=== PATIENT | female | born 1950 | race African-American/Black ===

== ENCOUNTER 2019-07-29 00:29 | Inpatient (IN) ==
[2019-07-29] MEDS ORDERED: ZOFRAN IV ONE (01:00)
[2019-07-29] MEDS ORDERED: NS 1,000 ML IV ONE (01:00)
[2019-07-29 01:08] LABS: BE -22.1 mmoll (-3.0-3.0); BLOOD TYPE ARTERIAL; HCO3-(ACT) 7.6 mmoll (20.0-26.0); METHB 0.2 % (0.0-1.5); O2(CT) 20.5 mL/dL (15.0-23.0); O2HB 95.6 % (95.0-99.0); PO2(98.6) 105 mmHg (60-100); SAMPLE BLOOD; SAO2 95.8 % (95.0-100.0); THB 15.2 g/dL (11.5-17.4)
[2019-07-29 01:12] LABS: PCO2(98.6) 18 mmHg (35-45)
[2019-07-29 01:12] LABS: HEMATOCRIT 43.7 % (37.0-47.0); HEMOGLOBIN 13.9 g/dL (12.0-16.0); MCH 29.4 PG (27-31); MCHC 31.8 g/dL (33-37); MCV 92.6 FL (81-99); MPV 10.5 FL (7.4-10.4); RBC 4.72 XMIL (4.2-5.4); RDW 13.9 % (11.5-14.5); WBC 13.24 X1000 (4.8-10.8)
[2019-07-29 01:13] LABS: ALLEN TEST NO; MODALITY ROOM AIR
[2019-07-29] MEDS ORDERED: DILAUDID IV ONE (01:30)
[2019-07-29 01:33] LABS: URINE SOURCE CATH
[2019-07-29] MEDS ORDERED: NS 100 ML ONE (01:33)
[2019-07-29 01:43] LABS: ESTIMATED GFR 28
[2019-07-29] MEDS ORDERED: HUMULIN R IV ONE ×3 (01:45→05:08)
[2019-07-29] MEDS: HUMULIN R 100 UNIT in NS 99 ML IV ONE ×2 (01:45→03:01)
[2019-07-29 01:46] LABS: AGAP 29; ALBUMIN 4.8 g/dL (3.5-5.0); ALKALINE PHOSPHATASE 129 U/L (32-104); BUN 26 mg/dL (8-22); CALCIUM 10.1 mg/dL (8.8-10.2); CHLORIDE 102 mmol/L (98-107); CK PROFILE 29 U/L (24-173); COSMO 304; CREATININE 1.8 mg/dL (0.5-0.9); GOT 12 U/L (10-30); GPT 7 U/L (10-36); MAGNESIUM 2.1 mg/dL (1.5-2.7); PHOSPHORUS 7.4 mg/dL (2.7-4.5); POTASSIUM 5.2 mmol/L (3.5-5.1); SODIUM 138 mmol/L (136-145); TCO2 6 mmol/L (25-35); TOTAL PROTEIN 8.7 g/dL (6.3-8.3)
[2019-07-29 01:49] LABS: GLUCOSE 522 mg/dL (70-104)
[2019-07-29 01:53] LABS: UR AMPHETAMINES QUAL NONE DETECTED (NONE DETECT); UR BARBITUATES QUAL NONE DETECTED (NONE DETECT); UR BENZODIAZEPIN QUAL NONE DETECTED (NONE DETECT); UR CANNABINOIDS QUAL NONE DETECTED (NONE DETECT); UR COCAINE QUAL NONE DETECTED (NONE DETECT); UR METHADONE QUAL NONE DETECTED (NONE DETECT); UR METHAMPHETAMINE QUAL NONE DETECTED (NONE DETECT); UR OPIATES QUAL NONE DETECTED (NONE DETECT); UR OXYCODONE QUAL NONE DETECTED (NONE DETECT); UR PCP QUAL NONE DETECTED (NONE DETECT); UR PROPOXYPHENE QUAL NONE DETECTED (NONE DETECT); UR TCA QUAL NONE DETECTED (NONE DETECT)
[2019-07-29 02:01] LABS: ACETONE SERUM SMALL (NEGATIVE)
[2019-07-29 02:03] LABS: BILIRUBIN URINE NEGATIVE (NEGATIVE); BLOOD URINE NEGATIVE (NEGATIVE); CLARITY CLEAR (CLEAR); COLOR YELLOW; KETONE URINE 3+(Large) mg/dL (NEGATIVE); LEUKOCYTES URINE NEGATIVE (NEGATIVE); NITRITE URINE NEGATIVE (NEGATIVE); PROTEIN URINE 1+(30 mg/dL) mg/dL (NEGATIVE); UROBILINOGEN URINE NORMAL
[2019-07-29 02:06] LABS: URINE BACTERIA 2+ /HFP; URINE EPITHELIAL CELLS <10 /HPF (<10); URINE RBC <10 /HPF (<10); URINE WBC <10 /HPF (<10)
--- NOTE | 2019-07-29 02:25 | EKG Report ---
Test Performed on : 07/29/2019 00:33:51 AM Test Reason : palpitation Blood Pressure : / mmHG Vent. Rate : 110 BPM Atrial Rate : 110 BPM P-R Int : 112 ms QRS Dur : 078 ms QT Int : 380 ms P-R-T Axes : 053 028 038 degrees QTc Int : 514 ms Sinus tachycardia. Nonspecific ST and T wave abnormality Abnormal ECG No previous ECGs available Unconfirmed Result
--- NOTE | 2019-07-29 02:26 | PROVIDER DOCUMENTATION ---
This chart was entered by Vicki Sorensen Scribe, acting as scribe for Uriel Goncalves MD. [facility]-General Adult - General Chief Complaint: Palpitations Stated Complaint: N/V, high blood sugar Time Seen by Provider: 07/29/19 00:41 Source: patient Allergies/Adverse Reactions: Patient Allergies Allergy/AdvReac Type Severity Reaction Status Date / Time aspirin AdvReac NAUSEA/VOMI Verified 07/29/19 00:33 TING Penicillins AdvReac Unknown Verified 07/29/19 00:33 Home Medications: Home Medication List Medication Instructions Recorded Confirmed Last Taken Type Atorvastatin Calcium [Lipitor] 40 mg PO QHS 07/29/19 07/29/19 Unknown History Clopidogrel Bisulfate [Clopidogrel] 1 tab PO DAILY 07/29/19 07/29/19 Unknown History Cyproheptadine HCl 4 mg PO QHS 07/29/19 07/29/19 Unknown History Docusate Sodium [Colace] 2 tab PO BID 07/29/19 07/29/19 Unknown History Lisinopril 2.5 mg PO DAILY 07/29/19 07/29/19 Unknown History Methocarbamol 500 mg PO Q6-8H PRN 07/29/19 07/29/19 Unknown History Metoprolol Babin/Hydrochlorothiaz 1 tab PO DAILY 07/29/19 07/29/19 Unknown History [Metoprolol ER-Hctz 25-12.5 mg] Pantoprazole Sodium 20 mg PO DAILY 07/29/19 07/29/19 Unknown History Paroxetine [Paxil] 20 mg PO DAILY 07/29/19 07/29/19 Unknown History Tamoxifen Citrate 20 mg PO DAILY 07/29/19 07/29/19 Unknown History - History of Present Illness -Gen Adult Nature of Presenting Problems: pt is a69 yobf c/o n/vx3 days, palpitations and bilat leg, back and abd pain. pt sts ran out of he rx last saturday. pt is a [facility] pt, has rt breast cancer. pt had rt mastectomy. pt has hx of DM and HTN. pt has port L chest. pt arrived via [facility], high fsbs of 418 and received zofran IM enroute. pt was seen at [facility] saturday for fall. Location of Pain/Injury: reports: abdomen, back, lower extremity Quality of Pain: reports: aching Severity: reports: mild Onset/Duration: reports: 3 days ago Timing: reports: still present Context/Activities at Onset: reports: none Modifying Factors: improves with: nothing Associated Symptoms: reports: back/neck pain, nausea, vomiting Similar Symptoms Previously?: Yes Recently seen or treated by another doctor?: Yes (er on saturday for fall ) - Diabetes Related Context Context: reports: high blood sugar Review of Systems - Adult - REVIEW OF SYSTEMS - ADULT Constitutional: reports: no symptoms reported. denies: chills, fever, fatique Eyes: reports: no symptoms reported Ears, Nose, Mouth & Throat: reports: no symptoms reported Cardiovascular: reports: see HPI, palpitations. denies: heart murmur, irregular heart rate, orthopnea Respiratory: reports: no symptoms reported Gastrointestinal: reports: see HPI, abdominal pain, nausea, vomiting. denies: diarrhea, difficulty swallowing, rectal bleeding Genitourinary: reports: no symptoms reported Musculoskeletal: reports: see HPI, back pain, muscle aches (bilat LE pain). denies: muscle weakness, neck pain Integumentary: reports: no symptoms reported Neurological: reports: no symptoms reported Psychiatric: reports: no symptoms reported Endocrine: reports: no symptoms reported Hematologic/Lymphatic: reports: no symptoms reported Allergic/Immunologic: reports: no symptoms reported All Other Systems: Reviewed and Negative Past History - Adult - PAST MEDICAL HISTORY-ADULT Review of Records: reports: Nursing Assessment Review, Medications Reviewed, Social history reviewed & non-contributory. Major Childhood Illnesses: reports: denies history Cardiovascular: reports: HTN Respiratory: reports: denies history Gastrointestinal: reports: denies history Obstetrical/Gynecological: reports: other (breast ca- resolved) Genitourinary: reports: denies history Musculoskeletal: reports: arthritis Neurological: reports: denies history Psychiatric: reports: denies history Endocrine/Immune: reports: Diabetes Other Conditions: reports: denies history - PRIOR SURGERIES/PROCEDURES Surgical/Procedure History: reports: breast (rt masectetomy) - IMMUNIZATION STATUS Childhood Immunizations: See Nurse Assessment Flu Vaccine: See Nurse Assessment - FAMILY HISTORY Family History: reviewed, not pertinent - SOCIAL HISTORY Smoking: cigarettes, less than 1 pack/day Provider spent 3-5 mins advising pt. on dangers of tobacco.: Discussed manners to quit use, and f/u contacts for add'l counseling. Substance Use: none/never Physical Exam-General - PHYSICAL EXAM-ADULT Initial Vital Signs Reviewed: Yes - CONSTITUTIONAL General Appearance: alert, mild distress, cachetic, thin. negative: appears well, lethargic, combative - EYES Eyes: PERRL/EOMI, pink conjunctivae - HEAD, EARS, NOSE, MOUTH & THROAT HENMT: normocephalic/atraumatic, moist mucous membranes - NECK Neck: non-tender, full range of motion, supple, normal inspection - RESPIRATORY Respiratory: chest non-tender, lungs clear, normal breath sounds - CARDIOVASCULAR Cardiovascular: normal peripheral pulses, regular rate, rhythm, no edema, no gallop, no JVD, no murmur. negative: bradycardia, tachycardia, extra beats, friction rub - GASTROINTESTINAL (ABDOMEN) Abdominal Exam: normal bowel sounds, soft, no organomegaly, no pulsatile mass, tenderness (general abd to palp). negative: non tender, distended, guarding, rigid - LYMPHATIC Lymphatic: no adenopathy - MUSCULOSKELETAL Back Exam: normal inspection, no CVA tenderness, no vertebral tenderness Extremity: normal range of motion, non-tender, normal inspection, no pedal edema , no calf tenderness, normal capillary refill Peripheral Pulses: radial (R): 2+, radial (L): 2+ - SKIN Integumentary: normal color, normal turgor, warm/dry - NEUROLOGIC Neurologic: grossly normal, no motor/sensory deficits - PSYCHIATRIC Psych/Mental Status: normal mood/affect, normal thought content, normal thought process, oriented x 3 Progress - PLAN OF CARE/RESULTS Progress/Plan/Lab Results: Vital Signs - 8 hr 07/29/19 00:29 Temperature 97.9 F Pulse Rate 112 H Respiratory Rate 24 Blood Pressure 128/104 O2 Sat by Pulse Oximetry 99 Orders Category Date Time Status Cardiac Monitoring DIRECTED Care 07/29/19 00:34 Active FSBS/Accucheck Result Q1H Care 07/29/19 00:39 Active Finger Stick Blood Sugar (ED) DIRECTED Care 07/29/19 00:34 Active Vital Signs Order Q1H Care 07/29/19 00:39 Active ABG [RESP] Routine Lab 07/29/19 00:39 Ordered ACETONE SERUM [CHEM] Stat Lab 07/29/19 00:39 Ordered CBC WITH NO DIFF [HEME] Stat Lab 07/29/19 00:39 Ordered CK PROFILE [SP CHEM] Stat Lab 07/29/19 00:39 Ordered COMPREHENSIVE METABOLIC PANEL [CHEM] Stat Lab 07/29/19 00:39 Ordered LACTATE, PLASMA [CHEM] Stat Lab 07/29/19 00:39 Ordered MAGNESIUM [CHEM] Stat Lab 07/29/19 00:39 Ordered PHOSPHORUS [CHEM] Stat Lab 07/29/19 00:39 Ordered TROPONIN T Stat Lab 07/29/19 00:[address] [URINALYSIS] Stat Lab 07/29/19 00:39 Uncollected URINE DRUG SCREEN PL Stat Lab 07/29/19 00:39 Uncollected 0.9% Sodium Chloride Inj [Ns] 1,000 ml Med 07/29/19 01:00 Active IV 999 mls/hr Ondansetron [Zofran] Med 07/29/19 01:00 Once 4 mg IV NOW ONE EKG [EKG] Stat Ther 07/29/19 00:34 Ordered Result Diagrams: 07/29/19 00:55 07/29/19 00:55 - EKG 1 Time of EKG reading by physician:: 00:31 EKG Read and Signed by:: Uriel Goncalves EKG Interpretation (*Must complete 3 of following elements*): Abnormal Rate: 110 Rhythm: ST [place]: normal QRS: normal SC Interval: normal ST Wave: non-specific ST changes (nonspecific ST and T wave abnormality) - CONSULTS/PCP/HOSPITALIST Notification #1 *Consult/PCP/Hospitalist*: Dr Cardenas Time Discussed: 02:10 Consult Disposition: Admit Departure - Departure Date of Disposition Decision: 07/29/19 Time of Disposition Decision: 02:24 DIAGNOSIS: DKA (diabetic ketoacidoses), Renal insufficiency, Hyperkalemia Disposition: ADMITTED INPATIENT 09 Certified Medical Emergency: Emergent Condition: Serious - Critical Care Note This patient required my direct & personal management of CC.: No Attestation - Physician/ ANUPAMA Attestation Patient care was provided by Advanced Practice Provider:: No The physician spent face to face time with patient:: Yes Advanced Practice Provider documentation review:: Supervising physician onsite and consulted in the evaluation and care of this patient. The physician did have a face to face encounter with the patient. This chart was documented by the indicated scribe, (Vicki Sorensen Scribe) and accurately reflects the services I performed and decisions made by me, Uriel Goncalves MD, as attested by the provider's signature.
[2019-07-29] MEDS ORDERED: G.I. COCKTAIL PO ONE (02:33)
[2019-07-29] MEDS ORDERED: NS 500 ML ONE (03:05)
[2019-07-29] MEDS ORDERED: NS 500 ML IV ONE (03:07)
[2019-07-29] MEDS ORDERED: D50W SYRINGE IV PRN ×2 (04:30→05:08)
[2019-07-29] MEDS ORDERED: ZOFRAN IV PRN (04:30)
[2019-07-29] MEDS ORDERED: POTASSIUM CHLORIDE 40 MEQ/SWI 40 MEQ/100 ML IVPB IV PRN ×2 (04:30→05:08)
[2019-07-29] MEDS ORDERED: TYLENOL PR PRN (04:30)
[2019-07-29] MEDS ORDERED: POTASSIUM CHLORIDE 20% LIQUID PO PRN (04:30)
[2019-07-29] MEDS ORDERED: ZOFRAN PO PRN (04:30)
[2019-07-29] MEDS ORDERED: HUMULIN R 100 UNIT in NS 100 ML IV SCH ×2 (04:30→05:15)
[2019-07-29] MEDS ORDERED: SODIUM BICARBONATE 8.4% 100 MEQ in STERILE WATER INJ. 500 ML IV PRN (04:30)
[2019-07-29] MEDS ORDERED: NS 1,000 ML IV SCH ×4 (04:30→05:15)
[2019-07-29] MEDS ORDERED: MAGNESIUM SULFATE 2 GM/S.W.I. 2 GM/50 ML IVPB IV PRN (04:30)
[2019-07-29] MEDS ORDERED: POTASSIUM CHLORIDE 20 MEQ/SWI 20 MEQ/100 ML IVPB IV PRN ×2 (04:30→05:08)
[2019-07-29] MEDS: ZOFRAN IV PRN (04:35)
[2019-07-29] MEDS ORDERED: D5 NS 1,000 ML IV PRN (05:08)
[2019-07-29] MEDS: DILAUDID IV PRN ×5 (05:42→21:29)
[2019-07-29 07:03] LABS: CALCIUM 8.2 mg/dL (8.8-10.2); CREATININE 1.9 mg/dL (0.5-0.9); MAGNESIUM 1.8 mg/dL (1.5-2.7); PHOSPHORUS 3.6 mg/dL (2.7-4.5)
[2019-07-29] MEDS: PRILOSEC PO SCH (07:04)
[2019-07-29] MEDS: POTASSIUM CHLORIDE 10% LIQUID PO PRN ×3 (07:18→22:45)
[2019-07-29] MEDS: PLAVIX PO SCH (08:23)
[2019-07-29] MEDS: PAXIL PO SCH (08:23)
[2019-07-29] MEDS: NOLVADEX PO SCH (08:23)
[2019-07-29 09:10] LABS: ALLEN TEST NO; BE -15.2 mmoll (-3.0-3.0); BLOOD TYPE ARTERIAL; METHB 0.3 % (0.0-1.5); O2(CT) 15.9 mL/dL (15.0-23.0); PCO2(98.6) 31 mmHg (35-45); PO2(98.6) 76 mmHg (60-100); SAMPLE BLOOD; SAO2 94.4 % (95.0-100.0)
[2019-07-29 09:19] LABS: MODALITY ROOM AIR; pH(98.6) 7.19 (7.35-7.45)
[2019-07-29] MEDS: XANAX PO SCH ×2 (09:31→21:07)
[2019-07-29] MEDS: 1/2 NS 1,000 ML IV SCH (10:14)
--- NOTE | 2019-07-29 10:43 | HISTORY AND PHYSICAL ---
PRIMARY CARE PHYSICIAN: Unknown. CHIEF COMPLAINT: Nausea, elevated blood glucose, not feeling well. HISTORY OF PRESENTING ILLNESS: 69-year-old female with a history of diabetes mellitus type 2, hypertension, hyperlipidemia, and coronary disease who initially presented to [facility] due to patient having nausea, vomiting, not feeling well. The patient was seen there and she was found to be in DKA and due to lack of ICU beds there she was transferred to [facility] for further evaluation and management. At the time of my examination, patient denied any headache, fever, chills, chest pain, shortness of breath but complained of all of not feeling well and being nauseated. PAST MEDICAL HISTORY: Include diabetes mellitus type 2, hypertension, hyperlipidemia, coronary artery disease. PAST SURGICAL HISTORY: Right lumpectomy, coronary stent, hysterectomy, left hip surgery. ALLERGIES: Aspirin and penicillin. CURRENT MEDICATIONS: Include atorvastatin 40 mg p.o. at bedtime, Plavix 75 mg p.o. daily, lisinopril 2.5 mg p.o. daily, pantoprazole 20 mg p.o. daily, tamoxifen 20 mg p.o. daily, paroxetine 20 mg p.o. daily. SOCIAL HISTORY: 40+ pack years history of smoking. Denies any history of alcohol or illicit drug use. FAMILY HISTORY: No history of coronary disease. REVIEW OF SYSTEMS: Fourteen point review of system is as in HPI. Other systems negative. PHYSICAL EXAMINATION: GENERAL: Cooperative, friendly female. She is resting comfortably now. VITAL SIGNS: Temperature 97.9 degrees, pulse 112, respiration 18, blood pressure 94/58. HEENT: Atraumatic, normocephalic. Extraocular movements intact. PERRLA. NECK: No masses. CHEST: Clear to auscultation. CARDIOVASCULAR: Regular rate and rhythm. ABDOMEN: Soft. Positive bowel sounds. EXTREMITIES: No edema. NEUROLOGIC: He is awake, alert, oriented x2. : No bladder distention. SKIN: Warm. LABORATORIES AND STUDIES: Sodium 138, potassium 5.2, chloride 102, CO2 6, BUN is 26, creatinine is 1.8. Glucose 522. WBC 13.24, hemoglobin 13.9, hematocrit 40.7 platelets 276,000. UA shows ketones. ASSESSMENT: This is a 69-year-old female with a history of diabetes mellitus type 2, hypertension, hyperlipidemia, coronary disease, who initially presented to [facility] due to having nausea, vomiting, and elevated blood glucose. She was evaluated. She was found to be in diabetic ketoacidosis and subsequently she was transferred to [facility] for further evaluation and management. 1. Diabetic ketoacidosis. 2. Coronary artery disease. 3. Hypertension. 4. Hyperlipidemia. PLAN: 1. We will admit patient PVC. 2. Continue with insulin drip per DKA protocol. 3. Continue with IV fluids. 4. We will monitor blood pressure closely. 5. Restart other home medications. 6. We will put patient on DVT prophylaxis with SCDs. 7. We will continue to follow and reassess. Make further recommendation based on patient's clinical course. cc: Jan Cardenas MD
[2019-07-29 10:47] LABS: CALCIUM 8.2 mg/dL (8.8-10.2); CREATININE 1.6 mg/dL (0.5-0.9); MAGNESIUM 2.1 mg/dL (1.5-2.7)
[2019-07-29 10:48] LABS: POTASSIUM 5.3 mmol/L (3.5-5.1)
[2019-07-29 13:20] LABS: ALLEN TEST NO; BLOOD TYPE ARTERIAL; HCO3-(ACT) 15.5 mmoll (20.0-26.0); METHB 0.3 % (0.0-1.5); O2HB 95.4 % (95.0-99.0); PCO2(98.6) 31 mmHg (35-45); PO2(98.6) 82 mmHg (60-100); SAMPLE BLOOD; SAO2 95.8 % (95.0-100.0); THB 11.9 g/dL (11.5-17.4); pH(98.6) 7.26 (7.35-7.45)
[2019-07-29 13:21] LABS: MODALITY ROOM AIR
[2019-07-29] MEDS: D5 NS 1,000 ML IV SCH ×2 (13:26→17:49)
[2019-07-29 16:00] LABS: CREATININE 1.4 mg/dL (0.5-0.9); PHOSPHORUS 1.7 mg/dL (2.7-4.5); POTASSIUM 4.2 mmol/L (3.5-5.1)
[2019-07-29 17:14] LABS: ALLEN TEST NO; BE -11.3 mmoll (-3.0-3.0); BLOOD TYPE ARTERIAL; HCO3-(ACT) 16.1 mmoll (20.0-26.0); MODALITY ROOM AIR; O2(CT) 15.5 mL/dL (15.0-23.0); O2HB 94.5 % (95.0-99.0); PCO2(98.6) 34 mmHg (35-45); PO2(98.6) 75 mmHg (60-100); SAMPLE BLOOD; SAO2 94.7 % (95.0-100.0); THB 11.6 g/dL (11.5-17.4); pH(98.6) 7.25 (7.35-7.45)
[2019-07-29 18:35] LABS: CREATININE 1.2 mg/dL (0.5-0.9); PHOSPHORUS 1.6 mg/dL (2.7-4.5); POTASSIUM 3.9 mmol/L (3.5-5.1)
--- NOTE | 2019-07-29 19:42 | PROGRESS NOTE ---
DATE: 07/29/2019 SUBJECTIVE: This patient is lying in bed. She is complaining of back pain and abdominal pain. She does have DKA. She has been placed on an insulin drip. I have placed this patient back on her home medications including Xanax. I do not have at this moment a source of infection, but she does have some bacteria 2+ in the urine but no white blood cells and no nitrates. Urine culture is negative so far. OBJECTIVE: Vital Signs: Temperature 97.9 degrees, pulse 91, respiratory rate 19, blood pressure 105/83, oxygen saturation 100% on room air. HEENT: Head normocephalic, no trauma, PERRLA. Neck: Supple. No JVD. No masses. Central trachea. Chest: Clear to auscultation. No wheezing. No rales. Abdomen: Soft. Generalized tenderness to palpation especially at the level of the periumbilical area. Abdomen: Soft, nontender, nondistended. Extremities: No edema, no clubbing, no cyanosis. Neurological Examination: The patient is awake. She is alert. She is oriented x2. She is not oriented to time. LABORATORY DATA: WBC 13.2, hemoglobin 13.9, hematocrit 43.7, platelets 276,000, pH 7.19, pCO2 31, pO2 76, bicarbonate 13 at room air. Sodium 142, potassium 5.3, chloride 112, bicarbonate 12, BUN 27, creatinine 1.6 glucose 271, calcium 9.2, phosphorus 3, magnesium 2.1. ASSESSMENT AND PLAN: 1. Diabetic ketoacidosis, continue with the diabetic ketoacidosis protocol, insulin drip, monitor the electrolytes and ABGs. Lab work seems to be better. She feels a little bit better as well, but she is still complaining of abdominal pain and back pain. Troponins are negative as well. The ABG is improving. I will continue to monitor this patient closely. Continue in the PVC unit. Continue with fluids. 2. History of coronary artery disease. She is not complaining of chest pain. Negative troponin. 3. Hypertension. Actually, we are holding all the blood pressure medication. This patient's blood pressure is borderline low. 4. Hyperlipidemia, aware. She has been getting treatment at home. I discussed her advanced directive with this patient for about 5 minutes, and she has decided to be full code. cc: Karel Solis MD
[2019-07-29] MEDS: PERIACTIN PO SCH (21:07)
[2019-07-29] MEDS: LIPITOR PO SCH (21:07)
[2019-07-29 21:51] LABS: ALLEN TEST YES; BE -11.6 mmoll (-3.0-3.0); BLOOD TYPE ARTERIAL; HCO3-(ACT) 15.9 mmoll (20.0-26.0); METHB 0.3 % (0.0-1.5); PCO2(98.6) 32 mmHg (35-45); PO2(98.6) 97 mmHg (60-100); SAMPLE BLOOD; SAO2 96.5 % (95.0-100.0); pH(98.6) 7.26 (7.35-7.45)
[2019-07-29 21:52] LABS: MODALITY ROOM AIR
[2019-07-29 22:29] LABS: CALCIUM 7.8 mg/dL (8.8-10.2); CREATININE 1.1 mg/dL (0.5-0.9); MAGNESIUM 1.9 mg/dL (1.5-2.7); PHOSPHORUS 1.2 mg/dL (2.7-4.5); POTASSIUM 4.7 mmol/L (3.5-5.1)
[2019-07-30 02:23] LABS: ALLEN TEST YES; BE -11.2 mmoll (-3.0-3.0); BLOOD TYPE ARTERIAL; HCO3-(ACT) 16.2 mmoll (20.0-26.0); O2(CT) 14.6 mL/dL (15.0-23.0); O2HB 95.5 % (95.0-99.0); PCO2(98.6) 33 mmHg (35-45); PO2(98.6) 82 mmHg (60-100); SAMPLE BLOOD; SAO2 95.7 % (95.0-100.0); THB 10.8 g/dL (11.5-17.4); pH(98.6) 7.26 (7.35-7.45)
[2019-07-30 02:24] LABS: MODALITY ROOM AIR
[2019-07-30] MEDS: DILAUDID IV PRN ×5 (02:30→21:28)
[2019-07-30] MEDS: D5 NS 1,000 ML IV SCH (02:35)
[2019-07-30 03:13] LABS: BASO# 0.01 X1000 (0.0-0.2); BASO% 0.1 % (0.0-0.8); EOS# 0.01 X1000 (0.0-0.7); EOS% 0.1 % (0.0-10.0); HEMOGLOBIN 10.6 g/dL (12.0-16.0); IMM GRAN# 0.02 X1000 (0.0-0.04); IMM GRAN% 0.2 % (0.0-0.5); LYMPH# 1.47 X1000 (1.2-3.4); MCH 28.4 PG (27-31); MCHC 31.2 g/dL (33-37); MCV 91.2 FL (81-99); MONO# 0.86 X1000 (0.11-0.59); MONO% 8.2 % (1.7-9.3); MPV 10.4 FL (7.4-10.4); NEUT# 8.11 X1000 (1.4-6.5); NEUT% 77.4 % (42.2-75.2); PLT 192 X1000 (130-400); RBC 3.73 XMIL (4.2-5.4); WBC 10.48 X1000 (4.8-10.8)
[2019-07-30 03:27] LABS: ESTIMATED GFR > 60
[2019-07-30 03:32] LABS: HEMOGLOBIN A1C 10.3 % (4.8-6.0)
[2019-07-30 03:41] LABS: AGAP 10; BUN 17 mg/dL (8-22); CHLORIDE 115 mmol/L (98-107); COSMO 284; GLUCOSE 160 mg/dL (70-104); MAGNESIUM 1.9 mg/dL (1.5-2.7); POTASSIUM 4.3 mmol/L (3.5-5.1); SODIUM 140 mmol/L (136-145); TCO2 15 mmol/L (25-35)
[2019-07-30] MEDS: POTASSIUM CHLORIDE 10% LIQUID PO PRN (04:07)
[2019-07-30] MEDS: SODIUM PHOSPHATE 30 MMOL in D5W 250 ML IV PRN ×2 (04:07→06:19)
[2019-07-30] MEDS ORDERED: TYLENOL PO PRN (04:15)
[2019-07-30 06:31] LABS: AGAP 10; BUN 15 mg/dL (8-22); CHLORIDE 112 mmol/L (98-107); COSMO 274; CREATININE 0.9 mg/dL (0.5-0.9); ESTIMATED GFR > 60; GLUCOSE 159 mg/dL (70-104); MAGNESIUM 1.9 mg/dL (1.5-2.7); POTASSIUM 4.5 mmol/L (3.5-5.1); SODIUM 135 mmol/L (136-145); TCO2 13 mmol/L (25-35)
[2019-07-30] MEDS: 1/2 NS 1,000 ML IV SCH ×2 (06:40→10:24)
[2019-07-30] MEDS: PRILOSEC PO SCH ×2 (06:46→21:27)
[2019-07-30 07:18] LABS: PHOSPHORUS 0.9 mg/dL (2.7-4.5)
[2019-07-30] MEDS: PLAVIX PO SCH (08:07)
[2019-07-30] MEDS: PAXIL PO SCH (08:07)
[2019-07-30] MEDS: XANAX PO SCH ×2 (08:07→21:27)
[2019-07-30] MEDS: NOLVADEX PO SCH (08:08)
[2019-07-30] MEDS: HUMULIN R SUBQ SCH ×3 (11:55→21:27)
[2019-07-30] MEDS ORDERED: TUMS PO PRN (12:24)
[2019-07-30] MEDS: HUMALOG MIX 75/25 SUBQ SCH ×2 (12:36→15:19)
--- NOTE | 2019-07-30 13:07 | EKG Report ---
Test Performed on : 07/30/2019 12:44:05 PM Test Reason : chest pain/ run of vtach Blood Pressure : / mmHG Vent. Rate : 076 BPM Atrial Rate : 076 BPM P-R Int : 122 ms QRS Dur : 080 ms QT Int : 410 ms P-R-T Axes : 000 005 045 degrees QTc Int : 461 ms Normal sinus rhythm. Normal ECG When compared with ECG of 29-JUL-2019 00:33, (Unconfirmed) ST no longer depressed in Anterior leads Nonspecific T wave abnormality, worse in Lateral leads Confirmed by Fabrice COOMBS, P.J.M ([id number]) on 07/31/2019 5:38:36 PM
[2019-07-30] MEDS: MAALOX PLUS LIQUID PO PRN (16:18)
--- NOTE | 2019-07-30 19:08 | Diag Imaging Result Doc PS360 ---
EXAM: KUB ABDOMEN HISTORY: ABD. PAIN TECHNIQUE: Single view COMPARISON: None. FINDINGS: No bowel obstruction. No organomegaly. No foreign body. There are several pelvic phleboliths. Orthopedic replacement of the left hip. IMPRESSION: Negative exam Electronically signed by José Miguel Ingram 07/30/2019 7:05 PM
[2019-07-30] MEDS: PERIACTIN PO SCH (21:27)
[2019-07-30] MEDS: LIPITOR PO SCH (21:27)
[2019-07-30] MEDS: DULCOLAX PR SCH (21:27)
[2019-07-30] MEDS: COLACE PO SCH (21:27)
--- NOTE | 2019-07-30 21:28 | PROGRESS NOTE ---
DATE: 07/30/2019 SUBJECTIVE: This patient is lying in bed. She is still complaining of some abdominal pain. The DKA resolved. She is hyperchloremic and the bicarbonate is a little bit low, so I will stop the NS and I will put her on half NS. Hopefully tomorrow, she will be better. I have stopped the insulin drip and I put her on scheduled subcutaneous treatment with insulin 75/25. I will monitor this patient closely. I do believe she can go to the floor, and I will advance the diet to a full liquid diet. OBJECTIVE: Vital Signs: Temperature 99 degrees, pulse 73, respiratory rate 18, blood pressure 145/67, oxygen saturation 100% on room air. HEENT: Head normocephalic, no trauma. PERRLA. Neck: Supple. No JVD. No masses. Central trachea. Chest: Clear to auscultation. No wheezing. No rales. Abdomen: Soft. Generalized tenderness to palpation, especially at the level of the periumbilical area. Extremities: No edema. No clubbing. No cyanosis. Neurological: The patient is awake. She is alert. She is oriented x3. She is having some mild tremors. LABORATORY: WBC 10.4, hemoglobin 10.6, hematocrit 34, platelet 192,000. Sodium 135, potassium 4.5, chloride 112, bicarbonate 13, BUN 15, creatinine 0.9, glucose 159, calcium 8, phosphorus 0.9, magnesium 1.9. ASSESSMENT AND PLAN: 1. Diabetic ketoacidosis, resolved. She is still a little bit acidotic, but her gap is closed. I have stopped the insulin drip, and I put her on subcutaneous treatment and sliding scale insulin. Her hemoglobin A1c is elevated at 10.3, so I do believe this patient was not taking care of her blood sugar at home. I have increased the dose of her 75/25 insulin and she seems to be doing better. She is still complaining of abdominal pain. 2. History of coronary artery disease. No chest pain at this moment. Negative troponin. 3. Hypertension. Actually, we are holding her blood pressure medications due to low blood pressure, but she seems to be doing a little bit better. I will continue to monitor for now. No changes. 4. Hyperlipidemia. Aware. 5. Hypophosphatemia. Phosphorus has been replaced. I will recheck her phosphorus level in the morning. 6. Anemia, normocytic. Aware. No signs of gastrointestinal bleed. 7. Abdominal pain, probably due to her diabetic ketoacidosis. I will monitor this closely. cc: Karel Solis MD
[2019-07-31] MEDS: MAALOX PLUS LIQUID PO PRN ×2 (00:09→10:45)
[2019-07-31] MEDS: DILAUDID IV PRN ×6 (01:33→22:04)
[2019-07-31 05:45] LABS: BASO# 0.01 X1000 (0.0-0.2); BASO% 0.2 % (0.0-0.8); EOS# 0.02 X1000 (0.0-0.7); EOS% 0.4 % (0.0-10.0); HEMOGLOBIN 11.3 g/dL (12.0-16.0); LYMPH# 1.27 X1000 (1.2-3.4); LYMPH% 25.6 % (20.5-51.1); MCH 28.9 PG (27-31); MCHC 31.4 g/dL (33-37); MCV 92.1 FL (81-99); MONO# 0.48 X1000 (0.11-0.59); MONO% 9.7 % (1.7-9.3); MPV 10.9 FL (7.4-10.4); NEUT# 3.19 X1000 (1.4-6.5); NEUT% 64.1 % (42.2-75.2); PLT 175 X1000 (130-400); RBC 3.91 XMIL (4.2-5.4); RDW 14.2 % (11.5-14.5); WBC 4.97 X1000 (4.8-10.8)
[2019-07-31] MEDS: 1/2 NS 1,000 ML IV SCH (05:50)
[2019-07-31 06:55] LABS: AGAP 14; BUN 4 mg/dL (8-22); CALCIUM 8.7 mg/dL (8.8-10.2); CHLORIDE 110 mmol/L (98-107); COSMO 283; CREATININE 0.8 mg/dL (0.5-0.9); ESTIMATED GFR > 60; GLUCOSE 247 mg/dL (70-104); MAGNESIUM 1.9 mg/dL (1.5-2.7); PHOSPHORUS 2.3 mg/dL (2.7-4.5); POTASSIUM 4.5 mmol/L (3.5-5.1); SODIUM 139 mmol/L (136-145); TCO2 15 mmol/L (25-35)
[2019-07-31] MEDS: HUMULIN R SUBQ SCH ×4 (07:26→20:46)
[2019-07-31] MEDS: XANAX PO SCH ×2 (08:59→20:45)
[2019-07-31] MEDS: PRILOSEC PO SCH ×2 (08:59→20:45)
[2019-07-31] MEDS: PLAVIX PO SCH (08:59)
[2019-07-31] MEDS: PAXIL PO SCH (08:59)
[2019-07-31] MEDS: NOLVADEX PO SCH (09:00)
[2019-07-31] MEDS: COLACE PO SCH ×2 (09:00→20:45)
[2019-07-31] MEDS: HUMALOG MIX 75/25 SUBQ SCH ×2 (09:01→16:39)
[2019-07-31] MEDS ORDERED: MBX SOLUTION MT ONE (12:20)
[2019-07-31] MEDS ORDERED: INSULIN PEN NEEDLES ONE ×2 (12:58→16:18)
[2019-07-31] MEDS: CARAFATE LIQUID PO SCH ×2 (14:31→20:44)
[2019-07-31] MEDS ORDERED: G.I. COCKTAIL PO ONE (19:00)
--- NOTE | 2019-07-31 19:54 | PROGRESS NOTE ---
DATE: 07/31/2019 SUBJECTIVE: This patient is sitting at the bedside and eating by herself. She is complaining of severe epigastric pain and actually is painful to palpation, is a burning sensation. Her blood sugar is still slightly elevated. I will continue with the same management for now. I believe this patient will be discharged in the next 48 to 72 hours. She is really weak. Physical therapy is working with her. Phosphorus level is better. Magnesium level is normal. PHYSICAL EXAMINATION: Temperature 99.2 degrees, pulse 80, respiratory rate 18, blood pressure 139/69, oxygen saturation 100% on room air.HEENT: Head normocephalic. No trauma. PERRLA. Neck: Supple. No JVD. No masses. Central trachea. Chest: Clear to auscultation. No wheezing. No rales. Abdomen: Soft. Tender to palpation at the level of the epigastric area. Positive bowel sounds. Extremities: No edema, no clubbing, no cyanosis. Neurological: The patient is awake, alert. She is oriented x3. She has some mild hand tremors. LABORATORY: WBC 4.9, hemoglobin 11.3, hematocrit 36.0, platelets 175,000. Sodium 139, potassium 4.5, chloride 110, bicarbonate 15, BUN 4, creatinine 0.8, glucose 247, calcium 8.7, phosphorus 2.3, magnesium 1.9. ASSESSMENT AND PLAN: 1. Diabetic ketoacidosis, resolved. I will continue with same management for now. Her hemoglobin A1c is elevated at 10.3, so I do not think she is taking care of her blood sugar at home. I increased her dose of 75/25 insulin. She seems to be doing better, but she is still around 200. I will continue with same management today and I will readjust the treatment in the morning. I may adjust the night dose today. 2. History of coronary artery disease. No chest pain at this moment. 3. Abdominal pain at the level of the epigastric area that is reproducible/painful to palpation, burning in nature. I will give her a GI cocktail and also I will increase the dose of the omeprazole to twice a day, 40 mg. Also, we will start this patient on Carafate. 4. Hypertension. Actually, I have been holding her blood pressure medication and it has been fine. We will continue to monitor. 5. Hyperlipidemia. Aware. 6. Hypophosphatemia, better. 7. Anemia, normocytic. No signs of gastrointestinal bleed. 8. This patient is tolerating a little bit orally. She is still complaining of some abdominal pain. We will continue to monitor. cc: Karel Solis MD
[2019-07-31] MEDS: PERIACTIN PO SCH (20:44)
[2019-07-31] MEDS: LIPITOR PO SCH (20:45)
[2019-07-31] MEDS: DULCOLAX PR SCH (20:50)
[2019-08-01] MEDS: CARAFATE LIQUID PO SCH ×4 (01:33→20:06)
[2019-08-01] MEDS: DILAUDID IV PRN ×6 (01:33→21:55)
[2019-08-01] MEDS: HUMALOG MIX 75/25 SUBQ SCH (06:04)
[2019-08-01] MEDS: HUMULIN R SUBQ SCH ×4 (06:09→20:56)
[2019-08-01] MEDS: XANAX PO SCH ×2 (08:36→20:06)
[2019-08-01] MEDS: NOLVADEX PO SCH (08:38)
[2019-08-01] MEDS: COLACE PO SCH ×2 (08:39→20:06)
[2019-08-01] MEDS: PLAVIX PO SCH (08:39)
[2019-08-01] MEDS: PAXIL PO SCH (08:39)
[2019-08-01] MEDS: PRILOSEC PO SCH ×2 (08:40→20:06)
[2019-08-01 08:43] LABS: AGAP 11; BUN 4 mg/dL (8-22); CALCIUM 8.6 mg/dL (8.8-10.2); CHLORIDE 106 mmol/L (98-107); COSMO 276; CREATININE 0.7 mg/dL (0.5-0.9); ESTIMATED GFR > 60; GLUCOSE 200 mg/dL (70-104); PHOSPHORUS 1.2 mg/dL (2.7-4.5); POTASSIUM 3.7 mmol/L (3.5-5.1); SODIUM 137 mmol/L (136-145); TCO2 20 mmol/L (25-35)
[2019-08-01] MEDS ORDERED: SODIUM PHOSPHATE 21 MMOL in NS 250 ML IV ONE (13:03)
[2019-08-01] MEDS ORDERED: G.I. COCKTAIL PO ONE (13:16)
[2019-08-01] MEDS ORDERED: HUMALOG MIX 75/25 SUBQ SCH (16:00)
--- NOTE | 2019-08-01 19:04 | PROGRESS NOTE ---
DATE: 08/01/2019 SUBJECTIVE: This patient states that she is feeling better compared with yesterday. She is still having some abdominal pain in the epigastric area, burning, but better. She is able to stand up and go to the bathroom. I already asked Physical Therapy and Occupational Therapy to evaluate this patient a couple days ago. She is tolerating her liquid diet now. We will continue to monitor. OBJECTIVE: Vital Signs: Temperature 97.8, pulse 78, respiratory rate 18, blood pressure 120/73 oxygen saturation 97% on room air. HEENT: Head normocephalic, no trauma. PERRLA. Neck: Supple. No JVD. No masses. Central trachea. Chest: Clear to auscultation. No wheezing. No rales. Abdomen: Soft. Tenderness to palpation at the level of the epigastric area, and actually she does have generalized tenderness to palpation but is getting better. No signs of peritoneal irritation. No rebound. Positive bowel sounds. Extremities: No edema, no clubbing, no cyanosis. Neurological: The patient is alert. She is oriented x3. No focal deficits. LABORATORY: Sodium 137, potassium 3.7, chloride 106, bicarbonate 20, BUN 4, creatinine 0.7 glucose 200, calcium 8.6, phosphorus 1.2. ASSESSMENT AND PLAN: 1. Diabetic ketoacidosis, resolved. I will continue with same management for now. Her hemoglobin A1c is 10.3, so I do believe she will need to adjust her home medications. As per the patient, her blood sugar readings are between 160 and 190. 2. History of coronary artery disease. No chest pain at this moment. 3. Uncontrolled type 2 diabetes as per #1. 4. Abdominal pain at the level of the epigastric area, likely due to gastritis/esophagitis, burning in nature. She received a GI cocktail yesterday that helped her a lot, and now she is on proton pump inhibitors twice a day and Carafate. I will continue with same management. On discharge, I will send her to a insole department worker as an outpatient. 5. Hypertension, stable. 6. Hyperlipidemia. Aware. 7. Hypophosphatemia. We will replace the phosphorus again. 8. Anemia. No signs of GI bleed, normocytic. 9. Generalized weakness. I will continue physical therapy and occupational therapy. I do not believe she needs to go to a rehab center for now unless she gets weaker. 10. Nausea and vomiting, better. cc: Karel Solis MD
[2019-08-01] MEDS: LIPITOR PO SCH (20:06)
[2019-08-01] MEDS: PERIACTIN PO SCH (20:06)
[2019-08-02] MEDS: CARAFATE LIQUID PO SCH ×4 (01:42→20:11)
[2019-08-02] MEDS: DILAUDID IV PRN ×6 (01:48→23:04)
[2019-08-02 05:43] LABS: AGAP 10; BUN 3 mg/dL (8-22); CALCIUM 8.2 mg/dL (8.8-10.2); CHLORIDE 105 mmol/L (98-107); COSMO 282; CREATININE 0.7 mg/dL (0.5-0.9); ESTIMATED GFR > 60; GLUCOSE 273 mg/dL (70-104); PHOSPHORUS 2.4 mg/dL (2.7-4.5); POTASSIUM 3.8 mmol/L (3.5-5.1); SODIUM 138 mmol/L (136-145); TCO2 23 mmol/L (25-35)
[2019-08-02] MEDS: HUMULIN R SUBQ SCH ×4 (06:10→21:55)
[2019-08-02] MEDS ORDERED: HUMALOG MIX 75/25 SUBQ SCH (07:00)
[2019-08-02] MEDS: PAXIL PO SCH (08:25)
[2019-08-02] MEDS: PRILOSEC PO SCH ×2 (08:25→20:11)
[2019-08-02] MEDS: NOLVADEX PO SCH (08:25)
[2019-08-02] MEDS: COLACE PO SCH ×2 (08:25→20:11)
[2019-08-02] MEDS: PLAVIX PO SCH (08:25)
[2019-08-02] MEDS: XANAX PO SCH ×2 (08:40→20:11)
--- NOTE | 2019-08-02 13:19 | PROGRESS NOTE ---
DATE: 08/02/2019 SUBJECTIVE: As per the patient, she is feeling better today compared with yesterday. She is still having epigastric pain, burning, but compared with 2 days ago, it is much better. She does have a past medical history of right breast cancer and chronic pain, and she has been followed by Dr. Galvan. She has been taking also medications every 4 hours for pain at home as needed. She has generalized weakness. I already consulted Physical Therapy and Occupational Therapy to evaluate this patient. She does not want to go to a rehab center. She wants to go home. OBJECTIVE: Vital Signs: Temperature 98.2 degrees, pulse 79, respiratory rate 18, blood pressure 118/77, oxygen saturation 100% on room air. HEENT: Head normocephalic. No trauma. PERRLA. Neck: Supple. No JVD. No masses. Central trachea. Chest: Clear to auscultation. No wheezing. No rales. Pain at the level of the right breast with some deformity. Abdomen: Soft. She does have some generalized tenderness to palpation, but better. No signs of peritoneal irritation. No rebound. Positive bowel sounds. Extremities: No edema, no clubbing, no cyanosis. Neurological: The patient is alert. She is oriented x3. She does have generalized weakness, but no focal deficits. LABORATORY DATA: Sodium 138, potassium 3.8, chloride 105, bicarbonate 23, BUN 3, creatinine 0.7, glucose 273, calcium 8.2, phosphorus 2.4. ASSESSMENT AND PLAN: 1. Diabetic ketoacidosis, resolved. I have increased her night dose of insulin, and I will continue with the same dose of 75/25 in the morning since the blood sugar at this moment is 159, but in the morning it was 273. She seems to be getting better. I will advance her diet today from liquid diet to gastrointestinal soft diet. 2. History of coronary artery disease. No chest pain at this moment. 3. Uncontrolled type 2 diabetes with hemoglobin A1c of 10.3. I have increased her dose of insulin 75/25, but only the night dose since her morning dose seems to be okay for now. 4. Abdominal pain at the level of the epigastric area, likely due to esophagitis, gastritis. Burning in nature. I put her on proton pump inhibitors and Carafate, and she is feeling better. She is now able to tolerate some food. She was having nausea and vomiting when she came in, with severe epigastralgia. Today, I have advanced her diet from liquid diet to a gastrointestinal soft diet. Hopefully, she will be tolerating this so she can go home in the next 24 to 48 hours. 5. Hypertension, stable. 6. Hyperlipidemia, aware. 7. Hypophosphatemia, better. 8. Anemia with no signs of gastrointestinal bleed. 9. History of right breast cancer, followed by Dr. Galvan as an outpatient. She does have a Port-A-Cath on the left side. Will monitor for now. 10. Chronic pain. Continue with pain medication during this hospitalization, and upon discharge, she can continue with her home medications. She uses pain medication every 4 hours as needed at home. 11. Generalized weakness. Continue physical therapy and occupational therapy. She does not want to go to a rehab center. She wants to go home. She uses a walker. 12. Nausea and vomiting. She is not asking for any nausea medication today, so I believe she is getting better, but I will advance her diet to see how she does. Overall, this patient is getting better. I just increased the dose of her night insulin. I have advanced her diet to see how she does from full liquid diet to a gastrointestinal soft. She was complaining of nausea and epigastric pain every single day, and this burning pain in the epigastric area is getting better after putting her on proton pump inhibitors and Carafate. Will continue to monitor. Hopefully, she can be discharged in the next 24 to 48 hours. cc: Karel Solis MD
[2019-08-02] MEDS: HUMALOG MIX 75/25 SUBQ SCH (16:25)
[2019-08-02] MEDS: LIPITOR PO SCH (20:11)
[2019-08-02] MEDS: PERIACTIN PO SCH (20:11)
[2019-08-03] MEDS: DILAUDID IV PRN ×5 (02:55→20:24)
[2019-08-03] MEDS: CARAFATE LIQUID PO SCH ×4 (02:56→20:24)
[2019-08-03 05:22] LABS: BASO# 0.01 X1000 (0.0-0.2); BASO% 0.2 % (0.0-0.8); EOS# 0.05 X1000 (0.0-0.7); EOS% 1.2 % (0.0-10.0); HEMATOCRIT 33.8 % (37.0-47.0); HEMOGLOBIN 10.6 g/dL (12.0-16.0); LYMPH# 1.53 X1000 (1.2-3.4); LYMPH% 37.4 % (20.5-51.1); MCH 28.7 PG (27-31); MCHC 31.4 g/dL (33-37); MCV 91.6 FL (81-99); MONO# 0.37 X1000 (0.11-0.59); MPV 10.7 FL (7.4-10.4); NEUT# 2.13 X1000 (1.4-6.5); NEUT% 52.2 % (42.2-75.2); PLT 218 X1000 (130-400); RBC 3.69 XMIL (4.2-5.4); RDW 14.1 % (11.5-14.5); WBC 4.09 X1000 (4.8-10.8)
[2019-08-03 05:50] LABS: AGAP 10; ALKALINE PHOSPHATASE 84 U/L (32-104); BUN 5 mg/dL (8-22); CHLORIDE 106 mmol/L (98-107); COSMO 289; CREATININE 0.8 mg/dL (0.5-0.9); ESTIMATED GFR > 60; GLUCOSE 262 mg/dL (70-104); GOT 9 U/L (10-30); GPT < 5 U/L (10-36); MAGNESIUM 1.9 mg/dL (1.5-2.7); PHOSPHORUS 2.3 mg/dL (2.7-4.5); POTASSIUM 3.7 mmol/L (3.5-5.1); SODIUM 142 mmol/L (136-145); TCO2 26 mmol/L (25-35); TOTAL BILIRUBIN 0.17 mg/dL (0.20-1.00)
[2019-08-03] MEDS: HUMULIN R SUBQ SCH ×4 (06:11→20:38)
[2019-08-03] MEDS ORDERED: HUMALOG MIX 75/25 SUBQ SCH ×2 (07:00)
[2019-08-03] MEDS: XANAX PO SCH ×2 (08:19→20:24)
[2019-08-03] MEDS: PLAVIX PO SCH (08:19)
[2019-08-03] MEDS: PRILOSEC PO SCH ×2 (08:19→20:24)
[2019-08-03] MEDS: PAXIL PO SCH (08:19)
[2019-08-03] MEDS: NOLVADEX PO SCH (08:23)
[2019-08-03] MEDS: COLACE PO SCH ×2 (10:34→20:24)
--- NOTE | 2019-08-03 15:09 | PROGRESS NOTE ---
DATE: 08/03/2019 SUBJECTIVE: This morning, Ms. Molina referred to be doing okay. No new complaints. She said the nausea and vomiting have eventually resolved. OBJECTIVE: Vital Signs: Blood pressure is 122/63, pulse of 65, respirations are 17, temperature is 98.3 degrees. General Examination: Ms. Molina is a 69-year-old, -[place] female. She is in bed. No distress. HEENT: Mucosa is pink and moist. Anicteric. Acyanotic. Neck: Supple. Chest: Good air entry bilaterally. No crepitations. No rhonchi. Cardiovascular: Regular rate and rhythm. There is a port on the left anterior chest wall. GI: Abdomen is soft, nontender. Bowel sounds present. Extremities: No pedal edema. TELESALES CONSULTANT: The patient is awake, alert, and oriented. Laboratory Data: CBC showed mild normocytic anemia. Chemistry is within normal range. Phosphorus slightly low at 2.3. ASSESSMENT: 1. Diabetic ketoacidosis on presentation, resolved. 2. Uncontrolled diabetes mellitus type 2 with a presenting A1c of 10.3. The patient is currently on insulin regimen. 3. Hypertension and dyslipidemia. 4. Hypophosphatemia. We will continue replacement. 5. Generalized weakness. 6. History of coronary artery disease. The patient is currently asymptomatic. 7. Remote history of right breast cancer. Patient follows up with Dr. Galvan. cc: Kike Enriquez MD
[2019-08-03] MEDS: HUMALOG MIX 75/25 SUBQ SCH (16:12)
[2019-08-03] MEDS: PERIACTIN PO SCH (20:24)
[2019-08-03] MEDS: LIPITOR PO SCH (20:24)
[2019-08-04] MEDS: ZOFRAN IV PRN (00:27)
[2019-08-04] MEDS: DILAUDID IV PRN ×3 (00:28→08:49)
[2019-08-04] MEDS: CARAFATE LIQUID PO SCH ×2 (01:23→08:49)
[2019-08-04 06:07] LABS: AGAP 11; ALBUMIN 2.9 g/dL (3.5-5.0); BUN 9 mg/dL (8-22); CALCIUM 8.4 mg/dL (8.8-10.2); CHLORIDE 103 mmol/L (98-107); COSMO 296; CREATININE 0.9 mg/dL (0.5-0.9); ESTIMATED GFR > 60; MAGNESIUM 1.9 mg/dL (1.5-2.7); PHOSPHORUS 2.7 mg/dL (2.7-4.5); POTASSIUM 4.6 mmol/L (3.5-5.1); SODIUM 138 mmol/L (136-145); TCO2 24 mmol/L (25-35)
[2019-08-04 06:09] LABS: GLUCOSE 467 mg/dL (70-104)
[2019-08-04] MEDS ORDERED: HUMULIN R SUBQ ONE (06:41)
[2019-08-04] MEDS ORDERED: HUMALOG MIX 75/25 SUBQ SCH ×2 (07:00→16:00)
[2019-08-04] MEDS: HUMULIN R SUBQ SCH ×2 (07:25→11:29)
[2019-08-04] MEDS: PLAVIX PO SCH (08:49)
[2019-08-04] MEDS: COLACE PO SCH (08:49)
[2019-08-04] MEDS: PAXIL PO SCH (08:49)
[2019-08-04] MEDS: PRILOSEC PO SCH (08:49)
[2019-08-04] MEDS: XANAX PO SCH (08:49)
[2019-08-04] MEDS: NOLVADEX PO SCH (10:53)
[2019-08-04 11:48] VITALS: BP 121/67
--- NOTE | 2019-08-04 21:19 | DISCHARGE SUMMARY ---
ADMISSION DATE: 07/29/2019 DISCHARGE DATE: 08/04/2019 DISPOSITION: Is home with [facility]. FOLLOW-UP: Will be Dr. Galvan. CONSULTATION DURING THIS ADMISSION: None. IMAGING STUDIES OF SIGNIFICANCE: A KUB showed no obstruction. ADMISSION DIAGNOSES: 1. Diabetic ketoacidosis. 2. Coronary artery disease. 3. Hypertension. 4. Dyslipidemia. DISCHARGE DIAGNOSIS: 1. Diabetic ketoacidosis on presentation, resolved. 2. Severe uncontrolled diabetes mellitus with presenting A1c of 10.3. The patient has been started on uptitrated insulin regimen. 3. Hypertension. 4. Dyslipidemia. 5. Hypophosphatemia, replaced. 6. Generalized weakness and deconditioning. Physical therapy was on board. 7. History of coronary artery disease, currently asymptomatic. 8. Right breast malignancy. Patient follows up with Dr. Galvan. DISCHARGE MEDICATIONS: 1. Methocarbamol 500 p.o. q.6. 2. Metoprolol/hydrochlorothiazide 1 tab daily. 3. Pantoprazole 20 mg p.o. daily. 4. Tamoxifen 20 mg p.o. daily. 5. Alprazolam 0.25 mg b.i.d. 6. Lisinopril 2.5 mg p.o. daily. 7. Paroxetine 20 mg p.o. daily. 8. Insulin Humalog 75/25 40 units in the morning and 22 units in the evening. 9. Calcium carbonate. 10. Clopidogrel 75 mg p.o. daily. 11. Lipitor 40 mg p.o. at bedtime. PRESENTING COMPLAINT: Elevated blood glucose, not feeling well. HISTORY OF PRESENTING COMPLAINT: Ms. Mloina is a 69-year-old female who is known to be diabetic, hypertension, dyslipidemia, and previous coronary artery disease, who comes to the emergency department because of not feeling well and her blood glucose elevated. She was found to be in DKA. Upon evaluation, and she was admitted initially to the ICU. HOSPITAL COURSE: Ms. Molina initially presented to [place], but because she needed ICU services, she was transferred to [facility]. She was admitted to the ICU here in [facility] and DKA protocol was initiated. Ms. Molina did well throughout the hospital course. Her gap closed and her DKA resolved. Subsequently, she was transferred from the ICU to the medical floor. She was also found to be remarkably dehydrated and with acute kidney injury, which improved and resolved during the hospital course. Her insulin regimen has been uptitrated and she has been advised on the new regimen. Her urine culture was negative and her KUB was unremarkable. She has been evaluated by physical therapy 3 times during the hospital course and she seems to be doing well. We think she is clinically stable for discharge. She has been advised on medication compliance, diet regimen for both diabetes and high blood pressure and also has been advised to get a local primary care physician for the management of all her comorbidities on outpatient basis. All the discharge instructions have been discussed with her and she voiced understanding. TIME SPENT FOR DISCHARGE: Is 35 minutes. cc: MD Campbell Escalante MD
[2019-08-05] MEDS ORDERED: HUMALOG MIX 75/25 SUBQ SCH (07:00)
== END 2019-08-04 13:27 | disposition home health service (06) ==
LOC: P.ED 00:29 → 2N 02:50 → SUATTDRO 02:50 → 1N 07-30 16:09
PROVIDERS: ATTEND Internal Medicine

== ENCOUNTER 2019-11-10 13:05 | Inpatient (IN) ==
--- NOTE | 2019-11-10 14:08 | Diag Imaging Result Doc PS360 ---
EXAM: CT HEAD/C-SPINE W/O CONTRAST 11/10/2019 HISTORY: head injury, fall, on plavix TECHNIQUE: This exam was performed using automated exposure control, adjustment of mA or kV according to patient size, and/or use of iterative reconstruction technique. COMMENT: There is no evidence of mass effect, bleed, or abnormal extra-axial fluid collection. There is some mucosal thickening and fluid in the left maxillary sinus and one of the ethmoid air cells. There is hyperostosis frontalis interna. The calvarium is intact. Cervical spine: There is no prevertebral soft tissue swelling. There is no evidence of acute fracture or subluxation. IMPRESSION: No evidence of acute intracranial or cervical spine disease. Electronically signed by David Hernandez 11/10/2019 2:06 PM
[2019-11-10] MEDS ORDERED: DILAUDID IV ONE ×2 (14:25→17:51)
[2019-11-10] MEDS ORDERED: ZOFRAN IV ONE (14:25)
--- NOTE | 2019-11-10 14:44 | PROVIDER DOCUMENTATION ---
This chart was entered by Nilsa Griffin Scribe, acting as scribe for Ginny Sahni MD. HPI-Head Injury - General Chief Complaint: Fall Stated Complaint: fall Time Seen by Provider: 11/10/19 13:22 Source: patient Allergies/Adverse Reactions: Patient Allergies Allergy/AdvReac Type Severity Reaction Status Date / Time aspirin AdvReac NAUSEA/VOMI Verified 11/10/19 13:19 TING Penicillins AdvReac Unknown Verified 11/10/19 13:19 Home Medications: Home Medication List Medication Instructions Recorded Confirmed Last Taken Type Alprazolam 0.25 mg PO BID 07/29/19 11/10/19 Unknown History Cyproheptadine HCl 4 mg PO QHS 07/29/19 11/10/19 Unknown History Docusate Sodium [Colace] 2 tab PO BID 07/29/19 11/10/19 Unknown History Lisinopril 2.5 mg PO DAILY 07/29/19 11/10/19 Unknown History Methocarbamol 500 mg PO Q6-8H PRN 07/29/19 11/10/19 Unknown History Metoprolol Babin/Hydrochlorothiaz 1 tab PO DAILY 07/29/19 11/10/19 Unknown History [Metoprolol ER-Hctz 25-12.5 mg] Pantoprazole Sodium 20 mg PO DAILY 07/29/19 11/10/19 Unknown History Paroxetine [Paxil] 20 mg PO DAILY 07/29/19 11/10/19 Unknown History Tamoxifen Citrate 20 mg PO DAILY 07/29/19 11/10/19 Unknown History Atorvastatin Calcium [Lipitor] 40 mg PO QHS #120 tab 08/04/19 11/10/19 Unknown Rx Calcium Carbonate Chew [Tums] 500 mg PO TID PRN PRN #120 tab.chew 08/04/19 11/10/19 Unknown Rx Clopidogrel Bisulfate [Clopidogrel] 1 tab PO DAILY #120 tab 08/04/19 11/10/19 Unknown Rx Baclofen [Lioresal] 10 mg PO TID PRN #15 tab 11/04/19 11/10/19 Unknown Rx Insulin Humalog 75/25 [Humalog Mix 8 unit SUBQ QHS 11/04/19 11/10/19 11/03/19 History 75/25] Insulin Humalog 75/25 [Humalog Mix 12 unit SUBQ DAILY 11/04/19 11/10/19 11/03/19 History /25] Hydromorphone HCl [Dilaudid] 4 mg PO Q8HR 11/10/19 11/10/19 Unknown History - History of Present Illness-Head Injury Nature of Presenting Problem: Patient is a 69 year old female who presents to the ED via EMS with pain to head and bilateral lower extremities. States having a fall today hitting her head on the wall. Denies LOC. Reports nausea, vomiting and headache after the fall. States having frequent falls. Reports taking Dilaudid 4 times a day for breast cancer. Other injuries associated with incident:: reports: RLE, LLE Quality of Pain: reports: aching Severity: reports: mild Onset/Duration: reports: just prior to arrival Timing: reports: still present Method of Injury: reports: fell Any recent trauma/injury?: reports: to head Loss of Consciousness: no loss of consciousness Injury Associated Symptoms: reports: headaches, nausea, vomiting Locality of Occurance: Home Similar Symptoms Previously?: Yes Recently seen or treated by another doctor?: Yes Review of Systems - Adult - REVIEW OF SYSTEMS - ADULT Constitutional: reports: no symptoms reported Eyes: reports: no symptoms reported Ears, Nose, Mouth & Throat: reports: no symptoms reported Cardiovascular: reports: no symptoms reported Respiratory: reports: no symptoms reported Gastrointestinal: reports: see HPI, nausea, vomiting Genitourinary: reports: no symptoms reported Musculoskeletal: reports: no symptoms reported Integumentary: reports: no symptoms reported Neurological: reports: see HPI, headache/migraines (PEREZ), other (head injury wi thout LOC) Psychiatric: reports: no symptoms reported Endocrine: reports: no symptoms reported Hematologic/Lymphatic: reports: no symptoms reported Allergic/Immunologic: reports: no symptoms reported All Other Systems: Reviewed and Negative Past History - Adult - PAST MEDICAL HISTORY-ADULT Review of Records: reports: Old Records Reviewed, Nursing Assessment Review, Medications Reviewed, Social history reviewed & non-contributory. Major Childhood Illnesses: reports: denies history Cardiovascular: reports: A-Fib, HTN Respiratory: reports: denies history Gastrointestinal: reports: denies history Obstetrical/Gynecological: reports: other (breast ca- resolved) Genitourinary: reports: denies history Musculoskeletal: reports: arthritis Neurological: reports: denies history Psychiatric: reports: denies history Endocrine/Immune: reports: Diabetes Other Conditions: reports: denies history - PRIOR SURGERIES/PROCEDURES Surgical/Procedure History: reports: reviewed, not pertinent, hysterectomy - IMMUNIZATION STATUS Childhood Immunizations: See Nurse Assessment Flu Vaccine: See Nurse Assessment - FAMILY HISTORY Family History: reviewed, not pertinent - SOCIAL HISTORY Smoking: cigarettes, less than 1 pack/day Provider spent 3-5 mins advising pt. on dangers of tobacco.: Discussed manners to quit use, and f/u contacts for add'l counseling. Substance Use: denies Living Situation: family Physical Exam- Neurological - Physical Exam-Neuro Initial Vital Signs Reviewed: Yes General Appearance: alert, no apparent distress. negative: lethargic Eye Exam: bilateral eye: normal inspection HENMT: normocephalic/atraumatic, moist mucous membranes Head Injury: no evidence of injury Respiratory: chest non-tender, lungs clear, normal breath sounds Cardiovascular: regular rate, rhythm Abdominal Exam: normal bowel sounds, non tender, soft Extremity: non-tender, normal inspection administrative underwriter Exam: normal hearing, normal speech Neurologic: grossly normal Integumentary: normal color, normal turgor, warm/dry Psych/Mental Status: normal mood/affect, normal thought content, normal thought process, oriented x 3 Progress - PLAN OF CARE/RESULTS Progress/Plan/Lab Results: Vital Signs - 8 hr 11/10/19 13:16 Temperature 98.2 F Pulse Rate 89 Respiratory Rate 18 Blood Pressure 139/81 O2 Sat by Pulse Oximetry 98 Laboratory Results - last 24 hr 11/10/19 11/10/19 11/10/19 14:50 14:50 14:50 WBC 2.57 L RBC 4.15 L Hgb 11.7 L Hct 37.8 MCV 91.1 MCH 28.2 MCHC 31.0 L RDW Std Deviation 13.9 Plt Count 160 MPV 10.7 H Immature Gran % (Auto) 0.0 Neut % (Auto) 59.5 Lymph % (Auto) 25.7 [place] % (Auto) 14.0 H Eos % (Auto) 0.4 Baso % (Auto) 0.4 Immature Gran # (Auto) 0.00 Neut # (Auto) 1.53 Lymph # (Auto) 0.66 L [place] # (Auto) 0.36 Eos # (Auto) 0.01 Baso # (Auto) 0.01 Sodium 137 Potassium 4.2 Chloride 104 Carbon Dioxide 19 L Anion Gap 14 BUN 14 Creatinine 0.9 Estimated GFR/1.73 m2 > 60 BUN/Creatinine Ratio 16 Glucose 481 H* Calculated Osmolality 296 Calcium 8.2 L Total Bilirubin < 0.15 L AST 15 ALT 9 L Alkaline Phosphatase 96 Troponin T High Sens < 6 Total Protein 6.7 Albumin 3.5 Globulin 3.0 Albumin/Globulin Ratio 1.0 Urine Source Urine Color Urine Turbidity Urine pH Ur Specific [place] Urine Protein Ur Glucose (Stick) Ur Ketones (Stick) Urine Blood Urine Nitrite Urine Bilirubin Urobilinogen Dipstick Urine Leukocytes Urine WBC (Auto) Urine RBC (Auto) U Epithel Cells (Auto) Urine Bacteria (Auto) Urine Opiates Screen Ur Oxycodone Screen Urine Methadone Screen U Propoxyphene Qual Ur Barbituates Screen Ur Tricyclics Screen Ur Phencyclidine Scrn Ur Amphetamines Screen U Methamphetamines Scrn U Benzodiazepines Scrn Urine Cocaine Screen U Cannabinoids Screen 11/10/19 11/10/19 15:00 15:00 WBC RBC Hgb Hct MCV MCH MCHC RDW Std Deviation Plt Count MPV Immature Gran % (Auto) Neut % (Auto) Lymph % (Auto) [place] % (Auto) Eos % (Auto) Baso % (Auto) Immature Gran # (Auto) Neut # (Auto) Lymph # (Auto) [place] # (Auto) Eos # (Auto) Baso # (Auto) Sodium Potassium Chloride Carbon Dioxide Anion Gap BUN Creatinine Estimated GFR/1.73 m2 BUN/Creatinine Ratio Glucose Calculated Osmolality Calcium Total Bilirubin AST ALT Alkaline Phosphatase Troponin T High Sens Total Protein Albumin Globulin Albumin/Globulin Ratio Urine Source CATH Urine Color STRAW Urine Turbidity CLEAR Urine pH 6.5 Ur Specific [place] 1.035 Urine Protein NEGATIVE Ur Glucose (Stick) >1000 A Ur Ketones (Stick) NEGATIVE Urine Blood NEGATIVE Urine Nitrite NEGATIVE Urine Bilirubin NEGATIVE Urobilinogen Dipstick NORMAL Urine Leukocytes NEGATIVE Urine WBC (Auto) <10 Urine RBC (Auto) <10 U Epithel Cells (Auto) <10 Urine Bacteria (Auto) NEGATIVE Urine Opiates Screen NONE DETECTED Ur Oxycodone Screen NONE DETECTED Urine Methadone Screen NONE DETECTED U Propoxyphene Qual NONE DETECTED Ur Barbituates Screen NONE DETECTED Ur Tricyclics Screen NONE DETECTED Ur Phencyclidine Scrn NONE DETECTED Ur Amphetamines Screen NONE DETECTED U Methamphetamines Scrn NONE DETECTED U Benzodiazepines Scrn PRESUMPTIVE POSITIVE A Urine Cocaine Screen NONE DETECTED U Cannabinoids Screen NONE DETECTED Orders Category Date Time Status Saline Loc NOW Care 11/10/19 14:28 Active CHEST-PORTABLE [RAD] Stat Exams 11/10/19 14:[address] HEAD/C-SPINE W/O CONTRAST [CT] Stat Exams 11/10/19 13:22 Completed CBC WITH ELECTRONIC DIFF [HEME] Stat Lab 11/10/19 14:50 Completed COMPREHENSIVE METABOLIC PANEL [CHEM] Stat Lab 11/10/19 14:50 Completed TROPONIN T HIGH SENSITIVITY Stat Lab 11/10/19 14:50 Completed URINALYSIS W/POSS RFLX CULT [URINALYSIS] Stat Lab 11/10/19 15:00 Completed URINE DRUG SCREEN PL Stat Lab 11/10/19 15:00 Completed 0.9% Sodium Chloride Inj [Ns] 1,000 ml Med 11/10/19 15:43 Active IV 999 mls/hr Hydromorphone [Dilaudid] Med 11/10/19 14:25 Discontinued 1 mg IV NOW ONE Insulin Human Regular [Humulin R] Med 11/10/19 15:43 Discontinued 10 unit IV NOW ONE Ondansetron [Zofran] Med 11/10/19 14:25 Discontinued 4 mg IV NOW ONE Patient reports frequent falls at home. Could be 2.2 to use of dilaudid and UDS + for benzos. She does have some neutropenia to 2.5 which is lower than she was last month at 4.3. Patient states that she is concerned that she keeps falling. LIves with ehr daughter but daughter and son in law work all day and leave her alone. Prior to moving here she was living in a [place] and states she is open to going back if this keeps her safe and from hurting herself. Glucose also very elevated. Spoke to Dr Brooke, reinforced ironworker for hosp who accepted patient for admission. Further orders to be placed by their teams. Result Diagrams: 11/10/19 14:50 11/10/19 14:50 - XRAY 1 XRAY Study: Chest Impression: See EMR Report ( EXAM: CHEST-PORTABLE 11/10/2019 HISTORY: freq falls TECHNIQUE: Erect AP portable at 1432 COMMENT: There is no evidence of pneumothorax or pleural fluid collection. Considering differences in technique there has been no significant change since 11/04/2019. IMPRESSION: No acute disease. Electronically signed by David Hernandez 11/10/2019 2:41 PM 11/10/19 1441 Interpreting Physician: David Hernandez MD Dictated Date/Time: 11/10/19 1439 cc: Ginny Sahni MD; None,PCP) - CT/MRI 1 CT Study: Cervical Spine, Head Impression: See EMR Report ( EXAM: CT HEAD/C-SPINE W/O CONTRAST 11/10/2019 HISTORY: head injury, fall, on plavix TECHNIQUE: This exam was performed using automated exposure control, adjustment of mA or kV according to patient size, and/or use of iterative reconstruction technique. COMMENT: There is no evidence of mass effect, bleed, or abnormal extra-axial fluid collection. There is some mucosal thickening and fluid in the left maxillary sinus and one of the ethmoid air cells. There is hyperostosis frontalis interna. The calvarium is intact. Cervical spine: There is no prevertebral soft tissue swelling. There is no evidence of acute fracture or subluxation. IMPRESSION: No evidence of acute intracranial or cervical spine disease. Electronically signed by David Hernandez 11/10/2019 2:06 PM 11/10/19 1406 Interpreting Physician: David Hernandez MD Dictated Date/Time: 11/10/19 1403 cc: Ginny Sahni MD;) - CONSULTS/PCP/HOSPITALIST Notification #1 *Consult/PCP/Hospitalist*: Dr Brooke Time Discussed: 15:50 Consult Disposition: Admit Departure - Departure Date of Disposition Decision: 11/10/19 Time of Disposition Decision: 15:47 DIAGNOSIS: Type 2 diabetes mellitus with hyperglycemia, with long-term current use of insulin, Neutropenia, Hyperglycemia, Polypharmacy, Frequent falls Disposition: ADMITTED INPATIENT 09 Certified Medical Emergency: Emergent Condition: Stable Referrals and Follow-Ups: None,PCP [Primary Care Provider] - - Critical Care Note This patient required my direct & personal management of CC.: No Attestation - Physician/ ANUPAMA Attestation Patient care was provided by Advanced Practice Provider:: No The physician spent face to face time with patient:: Yes Advanced Practice Provider documentation review:: Supervising physician onsite and consulted in the evaluation and care of this patient. The physician did have a face to face encounter with the patient. This chart was documented by the indicated scribe, (Nilsa Griffin, Jimy) and accurately reflects the services I performed and decisions made by me, Ginny Sahni MD, as attested by the provider's signature.
[2019-11-10 15:16] LABS: URINE SOURCE CATH
[2019-11-10 15:21] LABS: BILIRUBIN URINE NEGATIVE (NEGATIVE); BLOOD URINE NEGATIVE (NEGATIVE); COLOR STRAW; GLUCOSE URINE >1000 mg/dL (NEGATIVE); KETONE URINE NEGATIVE (NEGATIVE); LEUKOCYTES URINE NEGATIVE (NEGATIVE); NITRITE URINE NEGATIVE (NEGATIVE); PH URINE 6.5; PROTEIN URINE NEGATIVE (NEGATIVE); SP GRAVITY URINE 1.035; TURBIDITY URINE CLEAR (CLEAR); UROBILINOGEN URINE NORMAL (NORMAL)
[2019-11-10 15:22] LABS: BASO# 0.01 X1000 (0.0-0.2); BASO% 0.4 % (0.0-0.8); EOS# 0.01 X1000 (0.0-0.7); EOS% 0.4 % (0.0-10.0); HEMATOCRIT 37.8 % (37.0-47.0); HEMOGLOBIN 11.7 g/dL (12.0-16.0); LYMPH# 0.66 X1000 (1.2-3.4); LYMPH% 25.7 % (20.5-51.1); MCH 28.2 PG (27-31); MCV 91.1 FL (81-99); MONO# 0.36 X1000 (0.11-0.59); MPV 10.7 FL (7.4-10.4); NEUT# 1.53 X1000 (1.4-6.5); NEUT% 59.5 % (42.2-75.2); PLT 160 X1000 (130-400); RBC 4.15 XMIL (4.2-5.4); RDW 13.9 % (11.5-14.5); WBC 2.57 X1000 (4.8-10.8)
[2019-11-10 15:22] LABS: UR EPITHELIAL CELLS <10 /HPF (<10); URINE BACTERIA NEGATIVE /HPF; URINE RBC <10 /HPF (<10); URINE WBC <10 /HPF (<10)
[2019-11-10 15:37] LABS: ESTIMATED GFR > 60
[2019-11-10 15:41] LABS: AGAP 14; ALBUMIN 3.5 g/dL (3.5-5.0); ALKALINE PHOSPHATASE 96 U/L (32-104); BUN 14 mg/dL (8-22); CALCIUM 8.2 mg/dL (8.8-10.2); CHLORIDE 104 mmol/L (98-107); COSMO 296; CREATININE 0.9 mg/dL (0.5-0.9); GOT 15 U/L (10-30); GPT 9 U/L (10-36); POTASSIUM 4.2 mmol/L (3.5-5.1); SODIUM 137 mmol/L (136-145); TCO2 19 mmol/L (25-35); TOTAL BILIRUBIN < 0.15 mg/dL (0.20-1.00); TOTAL PROTEIN 6.7 g/dL (6.3-8.3)
[2019-11-10 15:41] LABS: UR AMPHETAMINES QUAL NONE DETECTED (NONE DETECT); UR BARBITUATES QUAL NONE DETECTED (NONE DETECT); UR BENZODIAZEPIN QUAL PRESUMPTIVE POSITIVE (NONE DETECT); UR CANNABINOIDS QUAL NONE DETECTED (NONE DETECT); UR COCAINE QUAL NONE DETECTED (NONE DETECT); UR METHADONE QUAL NONE DETECTED (NONE DETECT); UR METHAMPHETAMINE QUAL NONE DETECTED (NONE DETECT); UR OPIATES QUAL NONE DETECTED (NONE DETECT); UR OXYCODONE QUAL NONE DETECTED (NONE DETECT); UR PCP QUAL NONE DETECTED (NONE DETECT); UR PROPOXYPHENE QUAL NONE DETECTED (NONE DETECT); UR TCA QUAL NONE DETECTED (NONE DETECT)
[2019-11-10 15:42] LABS: GLUCOSE 481 mg/dL (70-104)
[2019-11-10] MEDS ORDERED: HUMULIN R IV ONE (15:43)
[2019-11-10] MEDS ORDERED: NS 1,000 ML IV ONE (15:43)
[2019-11-10] MEDS ORDERED: HUMULIN R (PARKWAY) ONE (15:45)
[2019-11-10] MEDS ORDERED: TUMS PO PRN (17:37)
[2019-11-10] MEDS: LIORESAL PO PRN (18:08)
--- NOTE | 2019-11-10 18:30 | HISTORY AND PHYSICAL ---
CHIEF COMPLAINT: Fall with head and hip pain. HPI: This is a 69-year-old female with a history of metastatic breast cancer, atrial fibrillation, diabetes mellitus and hypertension. She presents to the emergency room, stated she was walking with her cane this morning that her legs gave out on her and she fell. She states she hit her head on the wall. She has had a headache and bilateral leg pain since. She denies any loss of consciousness, any loss of bowel or bladder control. PAST MEDICAL HISTORY: 1. Diabetes mellitus type 2. 2. Metastatic breast cancer. 3. Atrial fibrillation. 4. Hypertension. 5. Chronic pain. PAST SURGICAL HISTORY: Hysterectomy, mastectomy, left hip pain, left breast biopsy, cardiac stents. SOCIAL HISTORY: She smokes about half a pack a day. Denies alcohol or illicit drug use. ALLERGIES: Aspirin which causes nausea, vomiting and penicillins with unknown reaction. REVIEW OF SYSTEMS: Discussed with the patient with pertinent positives stated in the HPI. She denied any syncope or dizziness, any chest pain or palpitations, any shortness of breath, cough, fever, chills, any black or bloody vomitus or stools. PHYSICAL EXAM: This is a 69-year-old female who is lying on the stretcher in the emergency room in mild distress. VITAL SIGNS: Blood pressure is 141/80 with a heart rate of 82, respirations are 16, temperature is 98.2 degrees with O2 saturations 95 to 97% on room air. HEENT: Head is normocephalic, atraumatic. Mucous membranes are moist. NECK: Supple with trachea midline. CARDIOVASCULAR: Regular rate and rhythm. No murmur. S1 and S2 appreciated. PULMONARY: Breath sounds are clear. No increased work of breathing noted. Chest rise falls symmetric respiration. Chest wall is nontender to palpation . GASTROINTESTINAL: Abdomen soft, nontender, nondistended with bowel sounds in all 4 quadrants. SKIN: Warm and dry with no rashes or lesions noted. EXTREMITIES: No clubbing, cyanosis, or edema. LABS: WBC is 2.5 with hemoglobin 11.7, hematocrit 37.8, platelets of 160,000. Sodium 137, potassium 4.2, BUN 14, creatinine 0.9 with a glucose of 481. Urinalysis is essentially negative. Urine drug screen is presumptive positive for benzodiazepines. ASSESSMENT AND PLAN: 1. Bilateral hip and leg pain status post fall. 2. Frequent falls. 3. Generalized weakness. 4. Diabetes mellitus type 2 with hyperglycemia. 5. Chronic pain on chronic narcotics. 6. Possible opiate withdrawal as the patient states she ran out of her pain medicine within the last week. PLAN: 1. The patient will be admitted to the hospital placed on telemetry. 2. CT of the pelvis bilateral. 3. Pattern blood glucose with sliding scale insulin, diabetic diet. 4. Continue Dilaudid, baclofen, Xanax as prescribed at home. 5. Continue tamoxifen. 6. For deep vein thrombosis prophylaxis will use SCDs at present as she has had frequent falls. 7. Gastrointestinal prophylaxis Protonix. 8. Metastatic breast cancer followed by Dr. Galvan. Dictated by STUART Gipson for Kevin Brooke MD cc: STUART Gipson MD
--- NOTE | 2019-11-10 18:33 | Diag Imaging Result Doc PS360 ---
EXAM: CT PELVIS W/O CONTRAST 11/10/2019 HISTORY: fall, hip pain TECHNIQUE: This exam was performed using automated exposure control, adjustment of mA or kV according to patient size, and/or use of iterative reconstruction technique. COMMENT: There is a total hip prosthesis on the left. There is no evidence of fracture or dislocation. There are no abnormal fluid collections. There is a moderately large amount of stool present in the visualized portion of the colon. The urinary bladder is slightly distended. IMPRESSION: No evidence of acute bony abnormality. Electronically signed by David Hernandez 11/10/2019 6:31 PM
[2019-11-10] MEDS: PERIACTIN PO SCH (21:42)
[2019-11-10] MEDS: DILAUDID PO SCH (21:42)
[2019-11-10] MEDS: COLACE PO SCH (21:43)
[2019-11-10] MEDS: XANAX PO SCH (21:43)
[2019-11-10] MEDS: HUMALOG SUBQ SCH (21:44)
--- NOTE | 2019-11-10 21:56 | HISTORY AND PHYSICAL ---
ADDENDUM: Patient seen and examined by myself. Full note dictated and discussed with nurse practitioner. Patient notes that she has been falling secondary to knee pain. Denies any chest pains, palpitations. Upon further exam, it does appears that she takes Dilaudid 4 times a day, although, has been out for a couple days, which certainly would correlate with her withdrawal type symptoms. I am going to admit her to the hospital. We will follow her for opiate withdrawal. Her blood sugars are elevated. We will treat this and we will follow. Certainly expect that her Dilaudid use is contributing to her frequent falls. cc: Kevin Brooke MD
[2019-11-11] MEDS: LIORESAL PO PRN (01:59)
[2019-11-11] MEDS: DILAUDID PO SCH ×5 (03:59→20:19)
[2019-11-11] MEDS: PRILOSEC PO SCH (06:27)
[2019-11-11] MEDS: HUMALOG SUBQ SCH ×2 (06:28→11:24)
[2019-11-11 06:40] LABS: BASO# 0.01 X1000 (0.0-0.2); BASO% 0.3 % (0.0-0.8); EOS# 0.02 X1000 (0.0-0.7); EOS% 0.7 % (0.0-10.0); HEMATOCRIT 38.3 % (37.0-47.0); HEMOGLOBIN 11.8 g/dL (12.0-16.0); IMM GRAN# 0.01 X1000 (0.0-0.04); IMM GRAN% 0.3 % (0.0-0.5); LYMPH# 1.04 X1000 (1.2-3.4); LYMPH% 35.6 % (20.5-51.1); MCH 28.9 PG (27-31); MCHC 30.8 g/dL (33-37); MCV 93.9 FL (81-99); MONO# 0.32 X1000 (0.11-0.59); MPV 11.2 FL (7.4-10.4); NEUT# 1.52 X1000 (1.4-6.5); NEUT% 52.1 % (42.2-75.2); PLT 130 X1000 (130-400); RBC 4.08 XMIL (4.2-5.4); RDW 14.1 % (11.5-14.5); WBC 2.92 X1000 (4.8-10.8)
[2019-11-11 06:44] LABS: ESTIMATED GFR > 60
[2019-11-11 06:53] LABS: AGAP 13; ALBUMIN 3.3 g/dL (3.5-5.0); ALKALINE PHOSPHATASE 91 U/L (32-104); BUN 13 mg/dL (8-22); CALCIUM 8.1 mg/dL (8.8-10.2); CHLORIDE 106 mmol/L (98-107); COSMO 273; CREATININE 0.7 mg/dL (0.5-0.9); GLUCOSE 174 mg/dL (70-104); GOT 19 U/L (10-30); GPT 8 U/L (10-36); MAGNESIUM 1.6 mg/dL (1.5-2.7); POTASSIUM 4.6 mmol/L (3.5-5.1); SODIUM 134 mmol/L (136-145); TCO2 16 mmol/L (25-35); TOTAL BILIRUBIN < 0.15 mg/dL (0.20-1.00); TOTAL PROTEIN 6.8 g/dL (6.3-8.3)
[2019-11-11] MEDS: COLACE PO SCH ×2 (08:27→20:19)
[2019-11-11] MEDS: NOLVADEX PO SCH (08:28)
[2019-11-11] MEDS: PLAVIX PO SCH (08:28)
[2019-11-11] MEDS: PAXIL PO SCH (08:28)
[2019-11-11] MEDS: XANAX PO SCH ×2 (08:29→20:20)
[2019-11-11] MEDS ORDERED: M.V.I.-12 10 ML, FOLIC ACID 1 MG, MAGNESIUM SULFATE 1 GM, THIAMINE 100 MG in NS 1,000 ML IV ONE (09:00)
[2019-11-11 09:20] LABS: HEMOGLOBIN A1C 9.9 % (4.8-6.0)
[2019-11-11] MEDS ORDERED: DILAUDID IV ONE (11:16)
[2019-11-11 15:04] LABS: URINE SOURCE CATH
[2019-11-11 15:09] LABS: BILIRUBIN URINE NEGATIVE (NEGATIVE); BLOOD URINE NEGATIVE (NEGATIVE); COLOR YELLOW; GLUCOSE URINE 500 mg/dL (NEGATIVE); KETONE URINE NEGATIVE (NEGATIVE); LEUKOCYTES URINE NEGATIVE (NEGATIVE); NITRITE URINE NEGATIVE (NEGATIVE); PROTEIN URINE TRACE mg/dL (NEGATIVE); SP GRAVITY URINE 1.022; TURBIDITY URINE CLEAR (CLEAR); UROBILINOGEN URINE NORMAL (NORMAL)
[2019-11-11 15:10] LABS: UR EPITHELIAL CELLS <10 /HPF (<10); URINE BACTERIA NEGATIVE /HPF; URINE RBC <10 /HPF (<10); URINE WBC <10 /HPF (<10)
[2019-11-11] MEDS: HUMALOG (PARKWAY) SUBQ SCH ×2 (17:01→20:20)
[2019-11-11] MEDS: DILAUDID IV PRN (17:39)
[2019-11-11] MEDS: ZOFRAN IV PRN (17:39)
[2019-11-11] MEDS: BENADRYL IV PRN (17:39)
[2019-11-11] MEDS: PERIACTIN PO SCH (20:20)
--- NOTE | 2019-11-11 22:42 | PROGRESS NOTE ---
DATE: 11/11/2019 SUBJECTIVE: Patient notes she is still having some intense pain in back, legs and knees as well as her left breast wall. PHYSICAL EXAM: Temperature 100 degrees, pulse 85, respiratory rate 18, BP 129/67.General: Patient is pleasant. She is in no respiratory distress, but obviously ill-appearing due to her pain. HEENT: Normocephalic. Neck: Supple. Cardiovascular: Regular rate. Chest: Clear. Abdomen: Soft. Extremities: Moves all extremities. ASSESSMENT: 1. Bilateral hip pain. 2. Frequent falls. 3. Generalized weakness. 4. Diabetes. 5. Chronic pain. PLAN: We are going to transfer the patient to [facility]. We will follow her leukopenia. Will ask her oncologist to assist in her care. cc: Kevin Brooke MD
[2019-11-12] MEDS: DILAUDID PO SCH ×8 (02:08→23:59)
[2019-11-12] MEDS: ZOFRAN IV PRN ×2 (02:39→09:04)
[2019-11-12] MEDS: BENADRYL IV PRN (02:49)
[2019-11-12] MEDS: DILAUDID IV PRN ×5 (02:49→21:53)
[2019-11-12] MEDS: HUMALOG (PARKWAY) SUBQ SCH ×3 (06:01→16:51)
[2019-11-12] MEDS: PRILOSEC PO SCH (06:02)
[2019-11-12] MEDS: LEVAQUIN 500 MG/D5W 500 MG/100 ML IVPB IV SCH (08:32)
[2019-11-12] MEDS: COLACE PO SCH ×2 (08:33→21:40)
[2019-11-12] MEDS: NOLVADEX PO SCH (08:34)
[2019-11-12] MEDS: PLAVIX PO SCH (08:35)
[2019-11-12] MEDS: PAXIL PO SCH (08:35)
[2019-11-12] MEDS ORDERED: M.V.I.-12 10 ML, FOLIC ACID 1 MG, MAGNESIUM SULFATE 1 GM, THIAMINE 100 MG in NS 1,000 ML IV ONE (08:50)
[2019-11-12] MEDS ORDERED: HUMALOG MIX 75/25 SUBQ SCH ×2 (09:00→21:00)
[2019-11-12] MEDS ORDERED: XANAX PO SCH (09:00)
[2019-11-12] MEDS ORDERED: NS 1,000 ML IV SCH (09:00)
[2019-11-12] MEDS: XANAX PO SCH ×2 (11:05→21:39)
--- NOTE | 2019-11-12 21:35 | PROGRESS NOTE ---
DATE: 11/12/2019 SUBJECTIVE: Patient notes she is still hurting in her knees and in her left chest wall, although has improved from admission. PHYSICAL EXAMINATION: Vital Signs: T-max 107, pulse 91, respiratory rate 22, BP 134/79. General: Patient is pleasant. She is in no current respiratory distress. She is awake, alert. HEENT: Normocephalic. Neck: Supple. Cardiovascular: Regular rate. Chest: Clear. Abdomen: Soft. Extremities: Moves all extremities. ASSESSMENT: 1. Bilateral hip and leg pain. 2. Acute on chronic pain in a patient who is on chronic narcotics. Her current pain seems to be slightly improved. 3. Diabetes with an A1c of 9.9. 4. Fever. We have added Levaquin. PLAN: We will continue patient in the hospital. Does have a leukopenia at 2.9 and a metabolic acidosis at 16. Calcium is low at 8.1. Albumin is low at 3. We are going to continue patient in the hospital and continue blood sugar control, pain control. We will transfer to [facility] for her primary oncologist, Dr. Galvan-to be involved with her care. I am certainly concerned that this left chest wall pain could be a resurgence of her cancer. cc: Kevin Brooke MD
[2019-11-12] MEDS: PERIACTIN PO SCH (21:39)
[2019-11-12] MEDS: HUMALOG MIX 75/25 SUBQ SCH (21:39)
[2019-11-12] MEDS: HUMALOG SUBQ SCH (21:40)
[2019-11-13] MEDS: DILAUDID IV PRN ×4 (03:07→18:07)
[2019-11-13] MEDS: DILAUDID PO SCH ×5 (04:33→20:24)
[2019-11-13] MEDS ORDERED: INSULIN PEN NEEDLES ONE (04:54)
[2019-11-13 05:13] LABS: BASO# 0.01 X1000 (0.0-0.2); BASO% 0.2 % (0.0-0.8); EOS# 0.01 X1000 (0.0-0.7); EOS% 0.2 % (0.0-10.0); HEMATOCRIT 34.1 % (37.0-47.0); HEMOGLOBIN 10.5 g/dL (12.0-16.0); LYMPH# 1.24 X1000 (1.2-3.4); LYMPH% 30.7 % (20.5-51.1); MCH 28.5 PG (27-31); MCHC 30.8 g/dL (33-37); MCV 92.4 FL (81-99); MONO# 0.39 X1000 (0.11-0.59); MONO% 9.7 % (1.7-9.3); MPV 10.3 FL (7.4-10.4); NEUT# 2.39 X1000 (1.4-6.5); NEUT% 59.2 % (42.2-75.2); PLT 127 X1000 (130-400); RBC 3.69 XMIL (4.2-5.4); RDW 13.8 % (11.5-14.5); WBC 4.04 X1000 (4.8-10.8)
[2019-11-13 05:53] LABS: AGAP 8; ALBUMIN 2.8 g/dL (3.5-5.0); ALKALINE PHOSPHATASE 78 U/L (32-104); BUN 6 mg/dL (8-22); CALCIUM 7.8 mg/dL (8.8-10.2); CHLORIDE 104 mmol/L (98-107); COSMO 274; CREATININE 0.6 mg/dL (0.5-0.9); ESTIMATED GFR > 60; GLUCOSE 215 mg/dL (70-104); GOT 16 U/L (10-30); GPT 7 U/L (10-36); POTASSIUM 4.3 mmol/L (3.5-5.1); SODIUM 135 mmol/L (136-145); TCO2 23 mmol/L (25-35); TOTAL BILIRUBIN < 0.15 mg/dL (0.20-1.00); TOTAL PROTEIN 5.6 g/dL (6.3-8.3)
[2019-11-13] MEDS: HUMALOG SUBQ SCH ×4 (06:13→20:25)
[2019-11-13] MEDS: PRILOSEC PO SCH (06:13)
[2019-11-13] MEDS: PAXIL PO SCH (08:13)
[2019-11-13] MEDS: COLACE PO SCH ×2 (08:14→20:24)
[2019-11-13] MEDS: PLAVIX PO SCH (08:15)
[2019-11-13] MEDS: NOLVADEX PO SCH (08:15)
[2019-11-13] MEDS: XANAX PO SCH ×2 (08:16→20:24)
[2019-11-13] MEDS: HUMALOG MIX 75/25 SUBQ SCH ×2 (08:17→20:29)
[2019-11-13] MEDS: LEVAQUIN 500 MG/D5W 500 MG/100 ML IVPB IV SCH (08:17)
[2019-11-13] MEDS ORDERED: VANCOMYCIN IV PER PHARMACY MISC SCH (14:00)
[2019-11-13] MEDS ORDERED: ZYVOX 600 MG/D5W 600 MG/300 ML IVPB IV SCH (14:00)
--- NOTE | 2019-11-13 14:57 | PROGRESS NOTE ---
DATE: 11/13/2019 SUBJECTIVE: This patient is complaining of lower extremity pain, 05/19. She recently had a fall and she has been having multiple falls at home apparently. She does have generalized weakness and she has a metastatic breast cancer. She was transferred from [facility] to be evaluated by Hematology/Oncology Department. Over there, her leukocyte count was 2.9, but now is around 4. I believe it is going to get better, but I will let Hematology/Oncology Department to evaluate this patient for this and also for the history of metastatic breast cancer. I am not quite sure if this patient is getting chemotherapy or not, or if she is a candidate for that. If she is not, probably she will need to go to a rehab center and/or long-term because of the generalized weakness. OBJECTIVE: Vital signs: Temperature 99.7 degrees, pulse 85, respiratory rate 16, blood pressure 112/59, oxygen saturation 100% on 3 L of nasal cannula. HEENT: Head normocephalic, no trauma. PERRLA. Neck: Neck is supple. No JVD. No masses. Central trachea. Chest: Clear to auscultation. Some crepitus at the bases. Abdomen: Soft. Some discomfort in the epigastric area. Extremities: No edema, no clubbing, no cyanosis, but she does have generalized pain. LABORATORY: WBC 4, hemoglobin 10.5, hematocrit 34.1, platelets 127. Sodium 135, potassium 4.3, chloride 104, bicarbonate 23. BUN 6, creatinine 0.6, glucose 215, calcium 7.8. AST 16, ALT 7, alkaline phosphatase 78, albumin 2.8. ASSESSMENT AND PLAN: 1. Bilateral lower extremity pain in a patient with frequent falls. I need to know the status of this patient with Hematology/Oncology Department. I do not know if she is getting chemotherapy or not. I do not know if she is a candidate for that either, but if she is not, probably she can go to a rehabilitation center and/or home with hospice, but I will wait for Hematology/Oncology evaluation. 2. Generalized weakness as above. 3. Type 2 diabetes with hyperglycemia, uncontrolled. Her hemoglobin A1c is above 9. We will continue to monitor. I will readjust her medications as needed. 4. Chronic pain on chronic narcotics. 5. Metastatic breast cancer. Aware. Pending Hematology/Oncology evaluation. 6. Mild leukopenia, getting better. 7. Fever. I do not really have a source of infection. Urine culture is negative. Blood culture showed gram-positive cocci. I will put this patient on vancomycin, and I will wait for the final sensitivity. That blood culture was done 2 days ago. I will wait for the final bacteria. I will repeat the blood culture today. cc: Karel Solis MD
[2019-11-13] MEDS: VANCOMYCIN 1,600 MG in NS 250 ML IV SCH (16:23)
[2019-11-13] MEDS: PERIACTIN PO SCH (20:24)
[2019-11-14] MEDS: DILAUDID PO SCH ×6 (00:25→23:09)
[2019-11-14] MEDS: PRILOSEC PO SCH (06:08)
[2019-11-14] MEDS: HUMALOG SUBQ SCH ×4 (06:08→22:28)
[2019-11-14] MEDS: COLACE PO SCH ×2 (08:22→22:25)
[2019-11-14] MEDS: PLAVIX PO SCH (08:22)
[2019-11-14] MEDS: XANAX PO SCH ×2 (08:22→22:25)
[2019-11-14] MEDS: PAXIL PO SCH (08:22)
[2019-11-14] MEDS: LEVAQUIN 500 MG/D5W 500 MG/100 ML IVPB IV SCH (08:23)
[2019-11-14] MEDS: NOLVADEX PO SCH (08:24)
[2019-11-14] MEDS: HUMALOG MIX 75/25 SUBQ SCH ×2 (08:24→22:25)
[2019-11-14 10:41] LABS: BASO# 0.04 X1000 (0.0-0.2); BASO% 0.6 % (0.0-0.8); EOS# 0.02 X1000 (0.0-0.7); EOS% 0.3 % (0.0-10.0); HEMOGLOBIN 10.7 g/dL (12.0-16.0); LYMPH# 1.06 X1000 (1.2-3.4); MCH 28.4 PG (27-31); MCHC 30.6 g/dL (33-37); MCV 92.8 FL (81-99); MONO# 0.49 X1000 (0.11-0.59); MONO% 7.9 % (1.7-9.3); MPV 10.2 FL (7.4-10.4); NEUT# 4.61 X1000 (1.4-6.5); NEUT% 74.2 % (42.2-75.2); PLT 118 X1000 (130-400); RBC 3.77 XMIL (4.2-5.4); RDW 13.6 % (11.5-14.5); WBC 6.22 X1000 (4.8-10.8)
[2019-11-14 11:06] LABS: AGAP 9; BUN 6 mg/dL (8-22); CALCIUM 7.9 mg/dL (8.8-10.2); CHLORIDE 101 mmol/L (98-107); COSMO 278; CREATININE 0.6 mg/dL (0.5-0.9); ESTIMATED GFR > 60; GLUCOSE 225 mg/dL (70-104); POTASSIUM 3.5 mmol/L (3.5-5.1); SODIUM 137 mmol/L (136-145); TCO2 27 mmol/L (25-35)
[2019-11-14 12:07] LABS: BANDS 8 % (0-1); LYMPHS 16 % (21-51); MONO 8 % (1-9); SEGS 68 % (42-75)
--- NOTE | 2019-11-14 12:15 | PROGRESS NOTE ---
DATE: 11/14/2019 SUBJECTIVE: The patient is still complaining of pain and apparently she has been having multiple falls at home. She does have generalized weakness. I have requested physical therapy to evaluate this patient and also I discussed the case with the shirt hemmer oncologist, Dr. Galvan. It looks like this patient has breast cancer or at least she had it before, but there is no evidence of metastatic disease. [place]. There is a concern of narcotic abuse in this patient. Because she does not have any kind of acute bony abnormality in the CT pelvis without contrast, there is not a metastatic disease. I will start decreasing the dose of the pain medication for this patient. I discussed the case with Dr. Galvan and he has recommended to refer this patient to a pain clinic and/or detox center. This patient is really weak and like I said, apparently she has been having multiple falls. I ordered an ultrasound of the lower extremities to rule out DVT. I do not think she has DVT, but I just want to rule it out. My next step would be to talk to the social services manager to see if we can send this patient to a rehab center but I will decrease the dose of the pain medication. I will try to do that on a daily basis. PHYSICAL EXAMINATION: Vital Signs: Temperature 99.1 degrees, pulse 83, respiratory rate 18, blood pressure 112/6,1 oxygen saturation 98 on 2 L of nasal cannula. HEENT: Head normocephalic. No trauma. PERRLA. Neck: Supple. No JVD. Central trachea. Chest: Clear to auscultation, some crepitus at the bases. Abdomen: Soft. She is complaining of some discomfort at the level of the epigastric area but there are positive bowel sounds. Extremities: No edema, no clubbing, no cyanosis, but she does have generalized pain with movement and even palpation. LABORATORY: No lab work done today. ASSESSMENT AND PLAN: 1. Bilateral lower extremity pain in a patient with frequent falls. Per Hematology/Oncology Department she does not have any metastatic disease and at this point does not have any lesion that can explain her lower extremity discomfort. I will talk to the social services manager to see if we can get a detox center for this patient and/or rehab center for this patient, and I will decrease the dose of the medications slowly. We have a positive blood culture 09/10 that showed gram-positive cocci. I will continue with vancomycin. I repeated the blood culture yesterday and both of them are negative so far. I do believe probably this is a contamination. 2. Generalized weakness as above. 3. Possible narcotic abuse. I will decrease the dose and the frequency of the pain medication. 4. History of breast cancer. Aware. This patient has been already evaluated by Hematology/Oncology Department. 5. Mild leukopenia, better. 6. The patient had a low-grade temperature yesterday and the day before yesterday as well as 2 days ago but no source of infection. She does have a positive blood culture, though 1 of 2 with gram-positive cocci and she was has been placed on vancomycin for now but likely this is a contaminant. 7. 1 out of 2 gram positive cocci bacteremia, likely contamination, but I will wait for the final results. Continue with vancomycin for now. cc: Karel Solis MD
--- NOTE | 2019-11-14 14:58 | Extremity Venous Study ---
PROCEDURE NAME: Venous U/S Bilateral Legs - 11/12/2019 PROCEDURE: Bilateral lower extremity venous imaging. DESCRIPTION OF PROCEDURE IN DETAIL: Patient has chest pain, knee pain, history of cancer, bilateral lower extremity venous images accomplished. The common femoral, superficial femoral, deep femoral, popliteal, posterior tibial, peroneal, and greater saphenous veins are imaged bilaterally. Doppler is used to evaluate the veins for spontaneity, phasicity, respiratory excursion, distal augmentation. All veins are compressible. No intraluminal clot is seen. INTERPRETATION: No evidence of deep or superficial venous thrombosis in either lower extremity veins identified. cc: MD Karel Mcconnell MD
[2019-11-14] MEDS: VANCOMYCIN 1,600 MG in NS 250 ML IV SCH (15:56)
[2019-11-14] MEDS: PERIACTIN PO SCH (22:25)
[2019-11-15] MEDS: HUMALOG SUBQ SCH ×4 (06:10→20:32)
[2019-11-15] MEDS: DILAUDID PO SCH ×4 (06:10→22:26)
[2019-11-15] MEDS: PRILOSEC PO SCH (06:10)
[2019-11-15] MEDS: LEVAQUIN 500 MG/D5W 500 MG/100 ML IVPB IV SCH (08:22)
[2019-11-15] MEDS: PLAVIX PO SCH (08:23)
[2019-11-15] MEDS: COLACE PO SCH ×2 (08:23→20:39)
[2019-11-15] MEDS: PAXIL PO SCH (08:23)
[2019-11-15] MEDS: XANAX PO SCH ×2 (08:23→20:38)
[2019-11-15] MEDS: HUMALOG MIX 75/25 SUBQ SCH ×2 (08:23→20:39)
[2019-11-15] MEDS: NOLVADEX PO SCH (08:23)
[2019-11-15] MEDS: ZOFRAN IV PRN ×2 (10:36→17:50)
--- NOTE | 2019-11-15 13:03 | PROGRESS NOTE ---
DATE: 11/15/2019 SUBJECTIVE: No acute events overnight. This patient is having some nausea today. We need to continue physical therapy. OBJECTIVE: Vital Signs: Temperature 98.6 degrees, pulse 81, respiratory rate 22, blood pressure 120/66, oxygen saturation 98 on nasal cannula. HEENT: Head normocephalic. No trauma. PERRLA. Neck: Supple. No JVD. No masses. Central trachea. Chest: Clear to auscultation. Some crepitus at the bases. Abdomen: Soft. She is complaining of some discomfort at the level of the epigastric area. Positive bowel sounds. Extremities: No edema, no clubbing, no cyanosis. As per the patient, some discomfort to palpation/painful to palpation at the level of the lower extremities, which is generalized. Laboratory: Glucose 183. ASSESSMENT AND PLAN: 1. Bilateral lower extremity pain in a patient with frequent falls. Hematology/oncology department state that she does not have a metastatic disease and also the patient does not have any problem that can explain her severe lower extremity pain. Probably, this is related to narcotic use and abuse. I will start decreasing the dose of narcotics slowly. 2. Generalized weakness, as above. 3. Possible narcotic use, as per #1. 4. History of breast cancer. Aware. No metastatic disease per hematology/oncology department. 5. Mild leukopenia, resolved. 6. One out of two Streptococcus salivarius bacteremia, likely a contamination. 7. Generalized weakness and physical deconditioning with multiple falls. My plan is to send this patient to a rehab center. I need to set up everything with the delinquency prevention social worker to see if she qualifies. cc: Karel Solis MD
[2019-11-15] MEDS: PERIACTIN PO SCH (22:26)
[2019-11-16] MEDS: DILAUDID PO SCH ×3 (05:18→18:25)
[2019-11-16] MEDS: HUMALOG SUBQ SCH ×4 (06:45→22:27)
[2019-11-16] MEDS: PRILOSEC PO SCH (06:45)
[2019-11-16] MEDS: LEVAQUIN 500 MG/D5W 500 MG/100 ML IVPB IV SCH (06:45)
[2019-11-16] MEDS: HUMALOG MIX 75/25 SUBQ SCH ×2 (09:29→20:41)
[2019-11-16] MEDS: PLAVIX PO SCH (09:29)
[2019-11-16] MEDS: ZOFRAN IV PRN (09:29)
[2019-11-16] MEDS: XANAX PO SCH ×2 (09:29→20:41)
[2019-11-16] MEDS: COLACE PO SCH ×2 (09:29→20:41)
[2019-11-16] MEDS: PAXIL PO SCH (09:29)
[2019-11-16] MEDS: NOLVADEX PO SCH (12:07)
--- NOTE | 2019-11-16 16:22 | PROGRESS NOTE ---
DATE: 11/16/2019 SUBJECTIVE: The patient is resting comfortably in bed. She is still complaining of lower extremity pain, but she does have a history of narcotic abuse. I had a large conversation with the daughter and also I found out that this patient, before the narcotic use, she was an alcoholic. As per the daughter, she has a history of breast cancer, but she states that she is cancer-free. Hematology/Oncology is following this patient, no metastasis. OBJECTIVE: Vital Signs: Temperature 98 degrees, pulse 89, respiratory rate 24, blood pressure 127/69, oxygen saturation 100% on 2 L of nasal cannula. HEENT: Head normocephalic, no trauma. PERRLA. Neck: Supple. No JVD. No masses. Central trachea. Chest: Clear to auscultation. Some crepitus at the bases. Abdomen: Soft. She is complaining of some discomfort at the level of the epigastric area and also lower extremities. Positive bowel sounds. Extremities: No edema. No clubbing. No cyanosis. As per the patient, she has generalized pain to palpation and mobilization at the level of the lower extremities. LABORATORY: Glucose 159. ASSESSMENT AND PLAN: 1. Bilateral lower extremity pain in a patient with frequent falls. Hematology/Oncology Department states that she does not have any metastatic disease. She has a history of breast cancer and she does not have a fracture or deep venous thrombosis that can explain her lower extremity pain. I will decrease the dose of the narcotics slowly. 2. Narcotic abuse. Aware. I will decrease the dose of Dilaudid from 2 mg every six hours to 1 mg every six hours and observe. 3. Generalized weakness. I had a conversation with the daughter and also the patient. Also, I involved the elementary school social worker. I do believe she needs to go to a rehab center and after that she needs to go to a pain clinic. 4. Narcotic abuse. This patient has been advised against narcotic use. I will continue with daily cessation education and I will decrease the dose slowly. 5. Tobacco abuse. This patient has been highly advised against tobacco use. I will continue with daily cessation education. 6. History of alcoholism. 7. History of breast cancer, apparently no metastasis at this moment. 8. Mild leukopenia, resolved. 9. One out of two Streptococcus salivarius bacteremia, likely contamination. 10. Generalized weakness and physical deconditioning with multiple falls. My plan is to send this patient to a rehab center and after that she should go to a pain clinic. cc: Karel Solis MD
--- NOTE | 2019-11-16 16:57 | HEMO/ONC CONSULTATION ---
DATE: 11/16/2019 ADMITTING PHYSICIAN: Kevin Brooke MD REQUESTING PHYSICIAN: Kevin Brooke MD. We appreciate this consult. CHIEF COMPLAINT: Breast cancer. HISTORY OF PRESENT ILLNESS: Ms. Sharon Molina is a 69-year-old female well known to Dr. Galvan with a history of infiltrating ductal carcinoma, WA positive, on tamoxifen. The patient also has a history of chronic pain with drug-seeking behavior. She presented to the emergency department the day of admission with reports that she was walking with her cane the morning of admission, and states that her legs gave out. The patient states that she fell and hit her head on the wall. She did report a headache and bilateral leg pain since that time. The patient underwent CT of the head and cervical spine, which were negative for any acute intracranial or C-spine disease. Additionally, the patient underwent pelvis CT which was negative for any acute current bony abnormality. The patient was also found to be significantly dehydrated with generalized weakness and was admitted for evaluation of frequent falls. PAST MEDICAL HISTORY: 1. Metastatic breast cancer. 2. Diabetes mellitus type 2. 3. Atrial fibrillation. 4. Hypertension. 5. Chronic pain. PAST SURGICAL HISTORY: 1. Hysterectomy. 2. Mastectomy. 3. Cardiac stent placement. SOCIAL HISTORY: The patient smokes 1/2 pack cigarettes daily. She does not use alcohol or illicit drugs. MEDICATIONS ON ADMISSION: Medication reconciliation pending. ALLERGIES: Aspirin and penicillins. REVIEW OF SYSTEMS: A 14 point review of systems was obtained and is negative except for mentioned in HPI. PHYSICAL EXAMINATION: General: Ms. Molina is a pleasant 69-year-old female lying supine in bed in no immediate distress. Vital Signs: Temperature 98.8 degrees, blood pressure 123/67, heart rate 86, respirations 20, O2 saturation is 98% on 3 L nasal cannula O2. HEENT: Normocephalic, atraumatic. Mucous membranes are slightly pale and moist. Sclerae is anicteric. Extraocular movements intact. Neck: Supple. Lungs: Clear to auscultation bilaterally. Chest expansion is equal bilaterally. Cardiovascular: S1, S2 is heard without murmur, rub or gallop. Abdomen: Nondistended. Extremities: Without clubbing, cyanosis, or edema. Dermatologic: No rashes, bruises or lesions. Neurologic: The patient is somewhat somnolent, but is oriented x3 and has no focal deficit. LABORATORY DATA: Hemoglobin 12.5, hematocrit 34.1, white blood cell count is 4.04, platelets 127,000. Sodium 135, potassium 4.3, chloride 101, CO2 is 23, BUN 6, creatinine 0.6 and glucose is 215, calcium is 7.8. IMAGING STUDIES: CT of the pelvis reveals no abnormality. Chest x-ray reveals no acute abnormality. CT of the head and C-spine reveal no acute abnormality. ASSESSMENT AND PLAN: 1. Infiltrating ductal carcinoma, ER in negative, WA positive, HER-2/alda negative on tamoxifen. The patient is followed regularly in clinic but has been noncompliant with all followups. Would continue to encourage compliance. 2. Bilateral hip and leg pain with fall without injury. 3. Frequent falls. Workup is currently pending. 4. Chronic pain with drug-seeking behavior and recommend pain clinic for this patient. 5. Diabetes mellitus type 2, on sliding scale insulin. We will follow along with you and make further recommendations pending outcomes. The above reflects the history, exam, assessment, and plan of Dr. Galvan. Dictated by STUART Marsh for Campbell Galvan MD cc: STUART Marsh MD
[2019-11-16] MEDS: PERIACTIN PO SCH (20:41)
[2019-11-17] MEDS: DILAUDID PO SCH ×2 (00:01→06:02)
[2019-11-17 05:16] LABS: BASO# 0.02 X1000 (0.0-0.2); BASO% 0.4 % (0.0-0.8); EOS# 0.03 X1000 (0.0-0.7); EOS% 0.6 % (0.0-10.0); HEMATOCRIT 35.2 % (37.0-47.0); HEMOGLOBIN 10.7 g/dL (12.0-16.0); IMM GRAN# 0.02 X1000 (0.0-0.04); IMM GRAN% 0.4 % (0.0-0.5); LYMPH# 1.23 X1000 (1.2-3.4); LYMPH% 24.6 % (20.5-51.1); MCH 27.9 PG (27-31); MCHC 30.4 g/dL (33-37); MCV 91.7 FL (81-99); MONO# 0.91 X1000 (0.11-0.59); MONO% 18.2 % (1.7-9.3); MPV 9.2 FL (7.4-10.4); NEUT# 2.78 X1000 (1.4-6.5); NEUT% 55.8 % (42.2-75.2); PLT 298 X1000 (130-400); RBC 3.84 XMIL (4.2-5.4); RDW 13.3 % (11.5-14.5); WBC 4.99 X1000 (4.8-10.8)
[2019-11-17 05:41] LABS: AGAP 11; BUN 10 mg/dL (8-22); CALCIUM 8.6 mg/dL (8.8-10.2); CHLORIDE 106 mmol/L (98-107); COSMO 285; CREATININE 0.6 mg/dL (0.5-0.9); ESTIMATED GFR > 60; GLUCOSE 145 mg/dL (70-104); POTASSIUM 3.4 mmol/L (3.5-5.1); SODIUM 142 mmol/L (136-145); TCO2 25 mmol/L (25-35)
[2019-11-17] MEDS: PRILOSEC PO SCH (06:03)
[2019-11-17] MEDS: HUMALOG SUBQ SCH ×4 (06:48→20:55)
[2019-11-17] MEDS: LEVAQUIN 500 MG/D5W 500 MG/100 ML IVPB IV SCH (08:49)
[2019-11-17] MEDS: HUMALOG MIX 75/25 SUBQ SCH ×2 (08:51→20:57)
[2019-11-17] MEDS: NOLVADEX PO SCH (08:53)
[2019-11-17] MEDS: COLACE PO SCH ×2 (08:53→20:56)
[2019-11-17] MEDS: PAXIL PO SCH (08:53)
[2019-11-17] MEDS: PLAVIX PO SCH (08:53)
[2019-11-17] MEDS: XANAX PO SCH ×2 (08:53→20:56)
[2019-11-17] MEDS: NORCO-7.5 PO PRN ×2 (12:04→18:36)
--- NOTE | 2019-11-17 13:27 | PROGRESS NOTE ---
DATE: 11/17/2019 SUBJECTIVE: The patient has been complaining of some nausea today, the patient has been seen already by Dr. Galvan. She has an infiltrating ductal carcinoma, ER negative, MI positive, HER- 2/Bina negative, on tamoxifen. Apparently, this patient has been noncompliant with all follow- ups. OBJECTIVE: Vital Signs: Temperature 98.6 degrees, pulse 79, respiratory rate 18, blood pressure 128/67, oxygen saturation 98 on 2 L of nasal cannula. HEENT: Head normocephalic, no trauma. PERRLA. Neck: Supple. No JVD. No masses. Central trachea. Chest: Clear to auscultation. Some crepitus at the bases. Abdomen: Soft. She is complaining of some discomfort at the level of the epigastric area and also lower extremities. Positive bowel sounds. Extremities: No edema. No clubbing, no cyanosis. Neurological: The patient is awake, alert. She does have generalized weakness and some tremors. LABORATORY: WBC 4.9, hemoglobin 10.7, hematocrit 35.2, platelets 298,000. Sodium 142, potassium 3.4, chloride 106, bicarbonate 25, BUN 10, creatinine 0.6 glucose 145, calcium 8.6. ASSESSMENT AND PLAN: 1. Bilateral lower extremity pain in a patient with frequent falls, no signs of metastatic disease. She has a history of breast cancer and has been followed by Hematology/Oncology Department, I will stop the Dilaudid and I will put her on Sumner as needed. 2. Narcotic abuse, aware. I will stop the Dilaudid and start this patient on Sumner to see if that works better. I will put her on 7.5 mg as needed every 6 hours. 3. Generalized weakness, hopefully we are going to be able to discharge this patient to a rehab center and then she can follow up in a pain clinic. 4. History of narcotic abuse. This patient has been advised against narcotic use. I will continue with daily cessation education and decrease the dose slowly. 5. Tobacco abuse. This patient has been highly advised against tobacco use. I will continue with daily cessation education. Aware. 6. History of alcoholism. 7. Breast cancer, infiltrating ductal carcinoma, ER negative/MI positive, HER-2/Bina negative on tamoxifen. Apparently, she has not been following up as an outpatient; she has been noncompliant with all the followups. 8. One out of two Streptococcus salivarius bacteremia, likely contamination. 9. Mild leukopenia, resolved. 10. Generalized weakness and physical deconditioning with multiple falls. The plan is to send this patient to a rehab center. 11. Anxiety. Continue with Xanax twice a day, low dose and paroxetine. cc: Karel Solis MD
[2019-11-17] MEDS: LIORESAL PO PRN (15:54)
[2019-11-17] MEDS ORDERED: DULCOLAX PR SCH ×3 (16:15→21:00)
[2019-11-17] MEDS: DULCOLAX PR SCH (16:37)
[2019-11-17] MEDS: PERIACTIN PO SCH (20:57)
[2019-11-18] MEDS: PRILOSEC PO SCH (06:07)
[2019-11-18] MEDS: NORCO-7.5 PO PRN ×2 (06:07→12:00)
[2019-11-18] MEDS: HUMALOG SUBQ SCH ×2 (06:13→11:21)
--- NOTE | 2019-11-18 07:25 | Diag Imaging Result Doc PS360 ---
EXAM: CHEST-PORTABLE HISTORY: dyspnea TECHNIQUE: Single view COMPARISON: 11/10/2019 FINDINGS: The lungs are well expanded. The heart remains enlarged. No pulmonary edema. No pleural effusions identified. No change in the left portacatheter. No pneumothorax. There are infiltrates in the upper right lung. These are more prominent than on the prior study. IMPRESSION: Mild worsening Electronically signed by José Miguel Ingram 11/18/2019 7:23 AM
[2019-11-18] MEDS: HUMALOG MIX 75/25 SUBQ SCH (09:31)
[2019-11-18] MEDS: XANAX PO SCH (09:34)
[2019-11-18] MEDS: PLAVIX PO SCH (09:34)
[2019-11-18] MEDS: COLACE PO SCH (09:34)
[2019-11-18] MEDS: PAXIL PO SCH (09:34)
[2019-11-18] MEDS: NOLVADEX PO SCH (09:35)
[2019-11-18] MEDS: DULCOLAX PR SCH (09:35)
--- NOTE | 2019-11-18 11:42 | DISCHARGE SUMMARY ---
ADMISSION DATE: 11/10/2019 DISCHARGE DATE: DISCHARGE DIAGNOSES: 1. Bilateral lower extremity pain in a patient with frequent falls and generalized weakness. 2. Possible pneumonia. 3. Chronic pain with narcotic use and abuse. 4. Generalized weakness. 5. Tobacco abuse. 6. History of alcoholism. 7. Breast cancer, infiltrating ductal carcinoma, ER negative, AR positive, HER-2/Bina negative, on tamoxifen. 8. Mild leukopenia, resolved. 9. General anxiety. PROCEDURES PERFORMED: 1. Head and C-spine CT scan dated 11/10/2019. Impression: No evidence of acute intracranial or cervical spine disease. 2. Chest x-ray dated 11/10/2019. Impression: No acute disease. 3. Pelvis CT scan dated 11/10/2019. Impression: No evidence of acute bony abnormality. 4. Chest x-ray dated [*]. Mild worsening of a possible infiltrate at the level of the right upper lung. HOSPITAL COURSE: A 69-year-old female with a past medical history of breast cancer, per Hematology Oncology Department, she does not have metastasis, she also has a history of diabetes, hypertension, chronic pain, apparently atrial fibrillation, diabetes, she presented and was admitted on 11/09/2019 due to multiple falls. Apparently, her legs gave out on her, apparently she hit her head on the wall. CT scan was negative. She has been complaining of bilateral leg pain since. She denied any loss of consciousness, any loss of bowel or bladder control. No nausea, no vomiting, no diarrhea, no constipation. She has a history of alcoholism some time ago and she currently is a smoker and also she has been using a lot of pain medication, especially narcotics, and she has been requesting a lot of pain medication during this hospitalization. I had a michele conversation with the daughter and the patient as well, it looks like she has been having issues with narcotic use and abuse and I have been decreasing the dose of the narcotics as needed, also the frequency and strength. She is really weak and she will be discharged to a rehab center. There is a possibility of right upper lobe pneumonia, but she has been getting antibiotics with levofloxacin for more than 5 days. I will continue with doxycycline as an outpatient to cover her for 5 more days as well. She is not having fever, no chills, but she has been coughing, but this cough is not new since she probably has chronic bronchitis due to smoking, the patient seems to be stable. She is always complaining of pain. She will be discharged to a rehab center and after that, I have requested to send this patient to a pain clinic. Hopefully, they can set this up for her. I already called the daughter I notified her about the plan and she agreed with this. PHYSICAL EXAMINATION: Vital signs: Temperature 98.8 degrees, pulse 84, respiratory rate 16, blood pressure 122/68, oxygen saturation 100% on 2 L of nasal cannula. HEENT: Head normocephalic, no trauma. PERRLA. Neck: Supple. No JVD. No masses. Central trachea. Chest: Clear to auscultation. No wheezing. No rales. Abdomen: Soft, nontender, nondistended. Some discomfort at the level of the epigastric area. Positive bowel sounds. Extremities: No edema, no clubbing, no cyanosis. Neurological: The patient is awake, alert. She does have generalized weakness and some mild tremors. LABORATORY DATA: Laboratory from yesterday, WBC 4.9, hemoglobin 10.7, hematocrit 35.2, platelets 298,000. Sodium 142, potassium 3.4, chloride 106, bicarbonate 25, BUN 10, creatinine 0.6, glucose 145, calcium 8.6. DISCHARGE MEDICATIONS: 1. Alprazolam 0.25 mg p.o. b.i.d. 2. Atorvastatin 40 mg p.o. at bedtime. 3. Baclofen 10 mg p.o. t.i.d. as needed. 4. Calcium carbonate 500 mg p.o. t.i.d. as needed. 5. Plavix 1 tablet p.o. daily. 6. Cyproheptadine 4 mg p.o. at bedtime. 7. Docusate 2 tablets p.o. b.i.d. 8. Doxycycline 100 mg p.o. b.i.d. 9. [place] 7.5 p.o. q.6 hours as needed for pain. 10. Humalog 75/25, 12 units in the morning and 8 units before dinner. 11. Lisinopril 2.5 mg p.o. daily. 12. Pantoprazole 20 mg p.o. daily. 13. Paxil 20 mg p.o. daily. 14. Tamoxifen 20 mg p.o. daily. TIME SPENT: Discharging this patient, 32 minutes. cc: Karel Solis MD
[2019-11-18 11:44] VITALS: BP 105/65
== END 2019-11-18 15:10 | DRG 637 ==
LOC: P.ED 13:05 → P.MEDSURG 18:12 → SUATTDRO 18:12 → 1N 11-12 12:49
PROVIDERS: ATTEND Internal Medicine